=== PATIENT | female | born 1965 | race Caucasian/White ===

== ENCOUNTER 2018-07-07 02:52 | Inpatient (IN) | payer OTHER ==
--- NOTE | 2018-07-07 03:50 | PDOC ---
History of Present Illness - General Chief Complaint: Pain Stated Complaint: ABD PAIN History Source: Patient - History of Present Illness Initial Comments: 07/07/18 06:18 53 year old female c/o RLQ pain worsening over the last 30 hours with nausea and vomiting. denies fever/ chills, urinary symptoms, flank pain. no pmhx no past surgeries. Past History - Past Medical History Allergies/Adverse Reactions: Allergies Allergy/AdvReac Type Severity Reaction Status Date / Time codeine Allergy Vomiting Verified 07/07/18 04:23 Home Medications: Ambulatory Orders Naproxen Sodium [Aleve] 220 mg PO PRN PRN 07/07/18 Ondansetron [Zofran Odt -] 4 mg SL PRN PRN 07/07/18 - Suicide/Smoking/Psychosocial Hx Smoking History: Never smoked Have you smoked in the past 12 months: No Information on smoking cessation initiated: No Hx Alcohol Use: Yes (occasional) Drug/Substance Use Hx: No Review of Systems - Review of Systems Able to Perform ROS?: Yes Is the patient limited Luxembourgish proficient: No Constitutional: No: Symptoms Reported, See HPI, Chills, Diaphoresis, Fever, Loss of Appetite, Malaise, Night Sweats, Weakness, Weight Stable, Unintentional Wgt. Loss, Unexplained wgt Loss, Other ABD/GI: Yes: Nausea, Vomiting, Abdominal cramping. No: Symptoms Reported, See HPI, Abdominal Distended, Abd. Pain w/ defecation, Blood Streaked Bowels, Constipated, Diarrhea, Difficulty Swallowing, Poor Appetite, Poor Fluid Intake, Rectal Bleeding, Indigestion, Tarry Stools, Other : No: Symptoms Reported, See HPI, Burning, Dysuria, Discharge, Frequency, Flank Pain, Hematuria, Incontinence, Pain, Urgency, Testicular Mass, Testicular Swelling, Lesions, Testicular Pain, Other Musculoskeletal: No: Symptoms Reported, See HPI, Back Pain, Gout, Joint Pain, Joint Swelling, Muscle Pain, Muscle Weakness, Neck Pain, Joint Stiffness, Other *Physical Exam - Vital Signs Last Vital Signs Temp Pulse Resp BP Pulse Ox 98.1 F 90 16 113/71 98 07/07/18 02:52 07/07/18 02:52 07/07/18 02:52 07/07/18 02:52 07/07/18 02:52 - Physical Exam General Appearance: Yes: Moderate Distress Cardiovascular: positive: Regular Rhythm, Regular Rate Gastrointestinal/Abdominal: positive: Normal Bowel Sounds, Tender (lower quadrant tenderness), Soft Musculoskeletal: positive: Normal Inspection Extremity: positive: Normal Capillary Refill, Normal Inspection, Normal Range of Motion Integumentary: positive: Normal Color, Dry, Warm Neurologic: positive: Fully Oriented, Alert Moderate Sedation - Procedure Monitoring Vital Signs: Procedure Monitoring Vital Signs Temperature 98.1 F 07/07/18 02:52 Pulse Rate 90 07/07/18 02:52 Respiratory Rate 16 07/07/18 02:52 Blood Pressure 113/71 07/07/18 02:52 O2 Sat by Pulse Oximetry (%) 98 07/07/18 02:52 ED Treatment Course - LABORATORY CBC & Chemistry Diagram: 07/07/18 04:10 07/07/18 04:10 Progress Note - Progress Note Progress Note: A: abdominal pain P: labs UA CTAP IVF *DC/Admit/Observation/Transfer Diagnosis at time of Disposition: Abdominal pain Qualifiers: Abdominal location: lower abdomen, unspecified Qualified Code(s): R10.30 - Lower abdominal pain, unspecified - Discharge Dispostion Condition at time of disposition: Fair - Referrals - Patient Instructions - Post Discharge Activity
[2018-07-07] MEDS ORDERED: SODIUM CHLORIDE 0.9% 500 ML INFUS.BAG IV ONE (03:51)
[2018-07-07] MEDS ORDERED: ACETAMINOPHEN 1000 MG/100 ML VIAL (NON FORMULARY) IVPB ONE (04:04)
[2018-07-07] MEDS ORDERED: ACETAMINOPHEN INJECTION 100 ML IVPB ONE ×2 (04:13→14:47)
[2018-07-07 04:21] LABS: BASO % 0.2 % (0-2.0); EOS % 0.1 % (0-4.5); HEMATOCRIT 40.2 % (32.4-45.2); HEMOGLOBIN 14.8 GM/dL (10.7-15.3); LYMPH % 8.7 % (8-40); MCH 33.2 pg (25.7-33.7); MCHC 36.9 g/dl (32.0-36.0); MEAN PLT VOLUME 7.2 fl (7.5-11.1); MONO % 3.4 % (3.8-10.2); NEUT % 87.6 % (42.8-82.8); PLATELET COUNT 208 K/MM3 (134-434); RBC 4.47 M/mm3 (3.60-5.2); RDW 12.8 % (11.6-15.6)
[2018-07-07 04:45] LABS: ALK PHOS 61 U/L (45-117); ANION GAP 8 MMOL/L (8-16); BILIRUBIN,TOTAL 2.4 mg/dL (0.2-1); BLOOD UREA NITROGEN 17 mg/dL (7-18); CALCIUM 8.8 mg/dL (8.5-10.1); CHLORIDE 104 mmol/L (98-107); CO2 27 mmol/L (21-32); CREATININE 1.1 mg/dL (0.55-1.3); GLUCOSE,RANDOM 131 mg/dL (74-106); LIPASE 282 U/L (73-393); POTASSIUM 4.2 mmol/L (3.5-5.1); SGOT/AST 22 U/L (15-37); SGPT/ALT 24 U/L (13-61); SODIUM 138 mmol/L (136-145); TOT PROT 7.2 g/dl (6.4-8.2)
--- NOTE | 2018-07-07 04:52 | PDOC ---
*Physical Exam - Vital Signs Last Vital Signs Temp Pulse Resp BP Pulse Ox 98.1 F 90 16 113/71 98 07/07/18 02:52 07/07/18 02:52 07/07/18 02:52 07/07/18 02:52 07/07/18 02:52 ED Treatment Course - LABORATORY CBC & Chemistry Diagram: 07/07/18 04:10 07/07/18 04:10 - ADDITIONAL ORDERS Additional order review: Laboratory Results 07/07/18 04:10 Sodium 138 Potassium 4.2 Chloride 104 Carbon Dioxide 27 Anion Gap 8 BUN 17 Creatinine 1.1 Creat Clearance w eGFR 52.16 Random Glucose 131 H Calcium 8.8 Total Bilirubin 2.4 H AST 22 ALT 24 Alkaline Phosphatase 61 Total Protein 7.2 Albumin 4.0 Lipase 282 - Medications Given in the ED: ED Medications Discontinued Medications Generic Name Dose Route Start Last Admin Trade Name Freq PRN Reason Stop Dose Admin Acetaminophen 1,000 mg 07/07/18 04:04 07/07/18 04:20 Ofirmev Injection - IVPB 07/07/18 04:05 1,000 mg ONCE ONE Administration Sodium Chloride 1,000 ml 07/07/18 03:51 07/07/18 04:05 Normal Saline - IV 07/07/18 03:52 1,000 ml ONCE ONE Administration Medical Decision Making - Medical Decision Making 07/07/18 04:51 Patient seen by the advanced practice provider under my direct supervision. Ancillary testing reviewed as necessary. I agree with plan as outlined by the advanced practice provider. *DC/Admit/Observation/Transfer Diagnosis at time of Disposition: Abdominal pain Qualifiers: Abdominal location: right lower quadrant Qualified Code(s): R10.31 - Right lower quadrant pain Acute appendicitis Qualifiers: Acute appendicitis type: with localized peritonitis Appendicitis gangrene presence: without gangrene Appendicitis perforation presence: without perforation Appendicitis abscess presence: without abscess Qualified Code(s): K35.30 - Acute appendicitis with localized peritonitis, without perforation or gangrene - Discharge Dispostion Condition at time of disposition: Fair - Referrals - Patient Instructions - Post Discharge Activity
[2018-07-07] MEDS ORDERED: morphine CARPU-JECT 4 MG/1 ML DISP.SYRIN IVPUSH ONE (04:58)
[2018-07-07] MEDS ORDERED: morphine SULFATE 4 MG/ML VIAL ONE (05:17)
[2018-07-07] MEDS ORDERED: ONDANSETRON 4 MG/2 ML VIAL ONE ×3 (05:17→13:59)
[2018-07-07] MEDS: ONDANSETRON 4 MG/2 ML VIAL IVPUSH ONE ×2 (05:25→14:05)
[2018-07-07 05:55] LABS: PLATELET ESTIMATE ADEQUATE
[2018-07-07] MEDS ORDERED: SODIUM CHLORIDE 1,000 ML IV SCH (06:30)
[2018-07-07 06:50] LABS: EPI CELLS RARE /HPF (FEW); URINE APPEARANCE SLCLOUDY; URINE BACTERIA RARE /hpf (NONE SEEN); URINE BILIRUBIN NEGATIVE (<2.0 mg/dL); URINE COLOR DKYELLOW; URINE GLUCOSE (UA) NEGATIVE (NEGATIVE); URINE KETONE NEGATIVE (NEGATIVE); URINE LEUK ESTERASE NEGATIVE (NEGATIVE); URINE MUCUS MANY; URINE NITRITE NEGATIVE (NEGATIVE); URINE PROTEIN 1+ (NEGATIVE); URINE UROBILINOGEN NEGATIVE mg/dL (0.2-1.0)
--- NOTE | 2018-07-07 07:12 | PDOC ---
*Physical Exam - Vital Signs Last Vital Signs Temp Pulse Resp BP Pulse Ox 98.1 F 90 16 113/71 98 07/07/18 02:52 07/07/18 02:52 07/07/18 02:52 07/07/18 02:52 07/07/18 02:52 - Physical Exam General Appearance: Yes: Nourished, Appropriately Dressed. No: Apparent Distress Gastrointestinal/Abdominal: positive: Normal Bowel Sounds, Tender (RLQ), Flat, Soft, Guarding (RLQ), Rebound (RLQ). negative: Distended Neurologic: positive: Fully Oriented, Alert, Normal Mood/Affect, Normal Response ED Treatment Course - LABORATORY CBC & Chemistry Diagram: 07/07/18 04:10 07/07/18 04:10 - ADDITIONAL ORDERS Additional order review: Laboratory Results 07/07/18 07/07/18 07/07/18 06:20 06:20 04:10 Sodium 138 Potassium 4.2 Chloride 104 Carbon Dioxide 27 Anion Gap 8 BUN 17 Creatinine 1.1 Creat Clearance w eGFR 52.16 Random Glucose 131 H Calcium 8.8 Total Bilirubin 2.4 H AST 22 ALT 24 Alkaline Phosphatase 61 Total Protein 7.2 Albumin 4.0 Lipase 282 Urine Color Dkyellow Urine Appearance Slcloudy Urine pH 5.0 Ur Specific [place] 1.024 Urine Protein 1+ H Urine Glucose (UA) Negative Urine Ketones Negative Urine Blood Negative Urine Nitrite Negative Urine Bilirubin Negative Urine Urobilinogen Negative Ur Leukocyte Esterase Negative Urine WBC (Auto) 7 Urine RBC (Auto) <1 Ur Epithelial Cells Rare Urine Bacteria Rare Urine Mucus Many Urine HCG, Qual Negative 07/07/18 04:10 RBC 4.47 MCV 90.0 MCHC 36.9 H RDW 12.8 MPV 7.2 L Neutrophils % 87.6 H Lymphocytes % 8.7 Monocytes % 3.4 L Eosinophils % 0.1 Basophils % 0.2 - Medications Given in the ED: ED Medications Discontinued Medications Generic Name Dose Route Start Last Admin Trade Name Freq PRN Reason Stop Dose Admin Acetaminophen 1,000 mg 07/07/18 04:04 07/07/18 04:20 Ofirmev Injection - IVPB 07/07/18 04:05 1,000 mg ONCE ONE Administration Morphine Sulfate 4 mg 07/07/18 04:58 07/07/18 05:27 Morphine Injection - IVPUSH 07/07/18 04:59 4 mg ONCE ONE Administration Ondansetron HCl 4 mg 07/07/18 04:58 07/07/18 05:25 Zofran Injection IVPUSH 07/07/18 04:59 4 mg ONCE ONE Administration Sodium Chloride 1,000 ml 07/07/18 03:51 07/07/18 04:05 Normal Saline - IV 07/07/18 03:52 1,000 ml ONCE ONE Administration Medical Decision Making - Medical Decision Making 07/07/18 07:11 Sign out received from Vianca Chavez NP. Pt pending CT read of abdomen/pelvis. 07/07/18 07:28 Acute appendicitis with possible peritonitis noted on CT. Will start antibiotics and maintenance fluids at this time. Pt still with pain to the RLQ. Will page surgery. 07/07/18 07:[address] Carey. Will take patient for surgery. Admit to Hospitalists 07/07/18 07:41 Microblog sent to hospitalists. 07/07/18 07:[address] Vernon PGY2 for [facility]. Will accept the patient for admission. Attending Dr. Thrasher. *DC/Admit/Observation/Transfer Diagnosis at time of Disposition: Abdominal pain Qualifiers: Abdominal location: right lower quadrant Qualified Code(s): R10.31 - Right lower quadrant pain Acute appendicitis Qualifiers: Acute appendicitis type: with localized peritonitis Appendicitis gangrene presence: without gangrene Appendicitis perforation presence: without perforation Appendicitis abscess presence: without abscess Qualified Code(s): K35.30 - Acute appendicitis with localized peritonitis, without perforation or gangrene - Discharge Dispostion Condition at time of disposition: Fair Decision to Admit order: Yes - Referrals - Patient Instructions - Post Discharge Activity
[2018-07-07] MEDS ORDERED: LACTATED RINGERS SOLUTION 1,000 ML/1,000 ML INFUS.BAG IV SCH (07:30)
[2018-07-07] MEDS ORDERED: PIPERACILLIN/TAZOB 3.375 GM 3.375 GM in DEXTROSE 5%-WATER - 50 ML IVPB ONE (07:32)
[2018-07-07] MEDS ORDERED: PIPERACILLIN/TAZOB 3.375 GM 3.375 GM/50 ML BAG IVPB ONE (08:16)
--- NOTE | 2018-07-07 08:17 | HP ---
CHIEF COMPLAINT: abd pain [place]CP[place] state HISTORY OF PRESENT ILLNESS: Patient is a 53 yo F with no significant PMHx presented with a sharp, constant, 9.5/10, diffuse abdominal pain, radiating to the RLQ that started a day and a half ago, which is worsened with movement. She said the pain then later localized to the RLQ. Patient also says shes nauseas with 1 episode of vomiting last night in the ER. She denies fevers, although she says she gets warm all the time due to menopause. Patient says she had a similar episode 2 years ago but was cleared by her doctor. She denies sob, chest pain, fevers, chills, bloody stools, vaginal discharge, diarrhea, urinary problems, headaches, cough. ER course was notable for: (1) CTAP nighthawk read: acute appendicitis with possible peritonitis (2) 4mg Morphine, 1L NS Bolus Recent Travel: flew in from out of [facility] yesterday PAST MEDICAL HISTORY: no pmhx PAST SURGICAL HISTORY: metatarsal surgery years ago Social History: Smoking: denies Alcohol: socially Drugs: denies Family History: Allergies codeine Allergy (Verified 07/07/18 04:23) Vomiting Hallucinations, N/V HOME MEDICATIONS: Home Medications Medication Instructions Recorded Naproxen Sodium [Aleve] 220 mg PO PRN PRN 07/07/18 Ondansetron [Zofran Odt -] 4 mg SL PRN PRN 07/07/18 REVIEW OF SYSTEMS CONSTITUTIONAL: loss of appetite Absent: fever, chills, diaphoresis, generalized weakness, malaise, weight change HEENT: Absent: rhinorrhea, nasal congestion, throat pain, throat swelling, difficulty swallowing, mouth swelling, ear pain, eye pain, visual changes CARDIOVASCULAR: Absent: chest pain, syncope, palpitations, irregular heart rate, lightheadedness , peripheral edema RESPIRATORY: Absent: cough, shortness of breath, dyspnea with exertion, orthopnea, wheezing, stridor, hemoptysis GASTROINTESTINAL: abdominal pain, nausea, vomiting Absent: abdominal distension, diarrhea, constipation, melena, hematochezia GENITOURINARY: Absent: dysuria, frequency, urgency, hesitancy, hematuria, flank pain, genital pain MUSCULOSKELETAL: Absent: myalgia, arthralgia, joint swelling, back pain, neck pain SKIN: Absent: rash, itching, pallor HEMATOLOGIC/IMMUNOLOGIC: Absent: easy bleeding, easy bruising, lymphadenopathy, frequent infections ENDOCRINE: Absent: unexplained weight gain, unexplained weight loss, heat intolerance, cold intolerance NEUROLOGIC: Absent: headache, focal weakness or paresthesias, dizziness, unsteady gait, seizure, mental status changes, bladder or bowel incontinence PSYCHIATRIC: Absent: anxiety, depression, suicidal or homicidal ideation, hallucinations. PHYSICAL EXAMINATION Vital Signs - 24 hr 07/07/18 02:52 Temperature 98.1 F Pulse Rate 90 Respiratory 16 Rate Blood Pressure 113/71 O2 Sat by Pulse 98 Oximetry (%) GENERAL: a/o x 3, laying in bed, in mild distress HEAD: Normal with no signs of trauma. EYES: Pupils equal, round and reactive to light, extraocular movements intact, sclera anicteric, conjunctiva clear. EARS, NOSE, THROAT: oropharynx clear without exudates. Dry mucous membranes NECK:supple without lymphadenopathy, JVD, or masses. LUNGS: Breath sounds equal, clear to auscultation bilaterally. No wheezes, and no crackles. HEART: Regular rate and rhythm, normal S1 and S2 without murmur, rub or gallop. ABDOMEN: Soft, diffuse tenderness in all quadrants. +guarding, + rovsing, + [place] LOWER EXTREMITIES: 2+ pulses, warm, well-perfused. No peripheral edema. NEUROLOGICAL: Cranial nerves II-XII intact. Normal speech. Normal gait. PSYCHIATRIC: Cooperative. Good eye contact. Appropriate mood and affect. Laboratory Results - last 24 hr 07/07/18 07/07/18 07/07/18 04:10 04:10 06:20 WBC 5.0 RBC 4.47 Hgb 14.8 Hct 40.2 MCV 90.0 MCH 33.2 MCHC 36.9 H RDW 12.8 Plt Count 208 MPV 7.2 L Absolute Neuts (auto) 4.4 Total Counted 100 Neutrophils % 87.6 H Neutrophils % (Manual) 78.0 Band Neutrophils % 8.0 Lymphocytes % 8.7 Lymphocytes % (Manual) 11.0 Monocytes % 3.4 L Monocytes % (Manual) 2 L Eosinophils % 0.1 Basophils % 0.2 Basophils % (Manual) 1.0 Nucleated RBC % 0 Platelet Estimate Adequate Platelet Comment No clotting detected Sodium 138 Potassium 4.2 Chloride 104 Carbon Dioxide 27 Anion Gap 8 BUN 17 Creatinine 1.1 Creat Clearance w eGFR 52.16 Random Glucose 131 H Calcium 8.8 Total Bilirubin 2.4 H AST 22 ALT 24 Alkaline Phosphatase 61 Total Protein 7.2 Albumin 4.0 Lipase 282 Urine Color Dkyellow Urine Appearance Slcloudy Urine pH 5.0 Ur Specific [place] 1.024 Urine Protein 1+ H Urine Glucose (UA) Negative Urine Ketones Negative Urine Blood Negative Urine Nitrite Negative Urine Bilirubin Negative Urine Urobilinogen Negative Ur Leukocyte Esterase Negative Urine WBC (Auto) 7 Urine RBC (Auto) <1 Ur Epithelial Cells Rare Urine Bacteria Rare Urine Mucus Many Urine HCG, Qual 07/07/18 06:20 WBC RBC Hgb Hct MCV MCH MCHC RDW Plt Count MPV Absolute Neuts (auto) Total Counted Neutrophils % Neutrophils % (Manual) Band Neutrophils % Lymphocytes % Lymphocytes % (Manual) Monocytes % Monocytes % (Manual) Eosinophils % Basophils % Basophils % (Manual) Nucleated RBC % Platelet Estimate Platelet Comment Sodium Potassium Chloride Carbon Dioxide Anion Gap BUN Creatinine Creat Clearance w eGFR Random Glucose Calcium Total Bilirubin AST ALT Alkaline Phosphatase Total Protein Albumin Lipase Urine Color Urine Appearance Urine pH Ur Specific [place] Urine Protein Urine Glucose (UA) Urine Ketones Urine Blood Urine Nitrite Urine Bilirubin Urine Urobilinogen Ur Leukocyte Esterase Urine WBC (Auto) Urine RBC (Auto) Ur Epithelial Cells Urine Bacteria Urine Mucus Urine HCG, Qual Negative ASSESSMENT/PLAN: 53 yo F with no significant PMHx presented with a sharp,diffuse abdominal pain and found to have acute appendicitis. #Acute Appendicitis -CTAP nighthawk read: acute appendicitis with possible peritonitis -LR @ 125ml/hour -Zosyn in ED -Switch to IV Ceftriaxone/Flagyl -Morphine 4mg in ED -cont. Morphine prn for pain control -Surgery consulted: Dr. Carey -peritoneal cultures -Type and screen #FEN -IV fluids LR @ 125 -monitor -NPO for possible sx #DVT -hold for possible surgery Dispo: Med-surge Visit type - Emergency Visit Emergency Visit: Yes ED Registration Date: 07/07/18 Care time: The patient presented to the Emergency Department on the above date and was hospitalized for further evaluation of their emergent condition. - New Patient This patient is new to me today: Yes Date on this admission: 07/12/18 - Critical Care Critical Care patient: No
[2018-07-07] MEDS ORDERED: MORPHINE SULFATE 2 MG/ML VIAL IVPUSH PRN (08:18)
[2018-07-07] MEDS ORDERED: MORPHINE SULFATE 2 MG/ML VIAL ONE (09:08)
[2018-07-07 09:44] LABS: INR 1.28 (0.83-1.09); PROTHROMBIN TIME (PATIENT) 15.1 SEC (9.7-13.0)
[2018-07-07] MEDS ORDERED: CEFTRIAXONE 2 GM in DEXTROSE 5%-WATER 100 ML IVPB SCH (10:00)
[2018-07-07] MEDS ORDERED: BUPIVACAINE HCL/PF 0.5% (5MG/ML) 10 ML VIAL ONE (10:34)
[2018-07-07] MEDS ORDERED: DEXTROSE 5%-WATER 100 ML IVPB ONE (10:53)
[2018-07-07 11:17] VITALS: BMI 23.0
--- NOTE | 2018-07-07 11:36 | EKG ---
Test Reason : Blood Pressure : / mmHG Vent. Rate : 071 BPM Atrial Rate : 071 BPM P-R Int : 122 ms QRS Dur : 082 ms QT Int : 434 ms P-R-T Axes : 076 070 056 degrees QTc Int : 471 ms NORMAL SINUS RHYTHM ANTERIOR INFARCT , AGE UNDETERMINED ABNORMAL ECG NO PREVIOUS ECGS AVAILABLE Confirmed by LOU SOUTH MD ([id number]) on 07/07/2018 11:36:29 AM Referred By: Confirmed By:LOU SOUTH MD
[2018-07-07] MEDS ORDERED: ROCURONIUM BROMIDE 50 MG/5 ML VIAL ONE (11:39)
[2018-07-07] MEDS ORDERED: MIDAZOLAM HCL 2 MG/2 ML SINGLE DOSE VIAL ONE (11:40)
--- NOTE | 2018-07-07 11:55 | CONSULT ---
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 PMHx: none PSHx: none Home Medications Medication Instructions Recorded Naproxen Sodium [Aleve] 220 mg PO PRN PRN 07/07/18 Ondansetron [Zofran Odt -] 4 mg SL PRN PRN 07/07/18 Allergies Allergy/AdvReac Type Severity Reaction Status Date / Time codeine Allergy Vomiting Verified 07/07/18 04:23 REVIEW OF SYSTEMS: CONSTITUTIONAL: Absent: fever, chills, diaphoresis, generalized weakness, malaise, loss of appetite, weight change CARDIOVASCULAR: Absent: chest pain, syncope, palpitations, irregular heart rate, lightheadedness , peripheral edema RESPIRATORY: Absent: cough, shortness of breath, dyspnea with exertion, wheezing, stridor, hemoptysis GASTROINTESTINAL: Absent: abdominal pain, abdominal distension, nausea, vomiting, diarrhea, constipation, melena, hematochezia GENITOURINARY: Absent: dysuria, frequency, urgency, hesitancy, hematuria, flank pain, genital pain MUSCULOSKELETAL: Absent: myalgia, arthralgia, joint swelling, back pain, neck pain SKIN: Absent: rash, itching, pallor HEMATOLOGIC/IMMUNOLOGIC: Absent: easy bleeding, easy bruising, lymphadenopathy NEUROLOGIC: Absent: headache, focal weakness, paresthesias, dizziness, unsteady gait, seizure, mental status changes, bladder or bowel incontinence PSYCHIATRIC: Absent: anxiety, depression, suicidal or homicidal ideation, hallucinations. PHYSICAL EXAM: GENERAL: Awake, alert, and fully oriented, in no acute distress. HEAD: Normal with no signs of trauma. EYES:, sclera anicteric, conjunctiva clear. NECK: Normal ROM, supple without lymphadenopathy, JVD, or masses. ABDOMEN: Soft, tender over RLQ, not distended, normoactive bowel sounds, voluntary guarding, positive rebound, no masses. No organomegaly. No hernias; Rovsings ; psoas and obturator signs are present. MUSCULOSKELETAL: Normal ROM at all joints. No bony deformities or tenderness. No CVA tenderness. UPPER EXTREMITIES: 2+ pulses, warm, well-perfused. No cyanosis. Cap refill <2 seconds. No peripheral edema. LOWER EXTREMITIES: 2+ pulses, warm, well-perfused. No calf tenderness. No peripheral edema. NEUROLOGICAL: Normal speech, gait not observed. PSYCH: Cooperative. Good eye contact. Appropriate mood and affect. SKIN: Warm, dry, normal turgor, no rashes or lesions noted. Vital Signs Temperature 98 F 07/07/18 10:00 Pulse Rate 88 07/07/18 10:00 Respiratory Rate 16 07/07/18 10:00 Blood Pressure 110/70 07/07/18 10:00 O2 Sat by Pulse Oximetry (%) 99 07/07/18 10:00 Lab Results WBC 5.0 K/mm3 (4.0-10.0) 07/07/18 04:10 RBC 4.47 M/mm3 (3.60-5.2) 07/07/18 04:10 Hgb 14.8 GM/dL (10.7-15.3) 07/07/18 04:10 Hct 40.2 % (32.4-45.2) 07/07/18 04:10 MCV 90.0 fl (80-96) 07/07/18 04:10 MCHC 36.9 g/dl (32.0-36.0) H 07/07/18 04:10 RDW 12.8 % (11.6-15.6) 07/07/18 04:10 Plt Count 208 K/MM3 (134-434) 07/07/18 04:10 Sodium 138 mmol/L (136-145) 07/07/18 04:10 Potassium 4.2 mmol/L (3.5-5.1) 07/07/18 04:10 Chloride 104 mmol/L (98-107) 07/07/18 04:10 Carbon Dioxide 27 mmol/L (21-32) 07/07/18 04:10 Anion Gap 8 MMOL/L (8-16) 07/07/18 04:10 BUN 17 mg/dL (7-18) 07/07/18 04:10 Creatinine 1.1 mg/dL (0.55-1.3) 07/07/18 04:10 Random Glucose 131 mg/dL (74-106) H 07/07/18 04:10 Calcium 8.8 mg/dL (8.5-10.1) 07/07/18 04:10 Blood Type O POSITIVE 07/07/18 09:05 Antibody Screen Negative 07/07/18 09:05 INR 1.28 (0.83-1.09) H 07/07/18 09:05 CT images and report c/w acute appendicitis IMP: acute appendicitis PLAN: Lap appendectomy possible open; r/b/t/a's d/w the patient and informed consent obtained. Nba Carey MD FACS
[2018-07-07] MEDS ORDERED: ePHEDrine SULFATE 50 MG/1 ML AMPULE ONE (12:10)
[2018-07-07] MEDS ORDERED: BUPIVACAINE HCL/PF (5 MG/ML) 30 ML VIAL IJ ONE ×2 (12:54→13:31)
[2018-07-07] MEDS ORDERED: NEOSTIGMINE METHYLSULFATE 0.5 MG/ML - 10 ML MDV ONE (13:15)
--- NOTE | 2018-07-07 14:18 | PN ---
Teaching Attending Note Name of Resident: Hemalatha Vernon ATTENDING PHYSICIAN STATEMENT I saw and evaluated the patient. I reviewed the resident's note and discussed the case with the resident. I agree with the resident's findings and plan as documented. SUBJECTIVE:53yo F with no PMH presented with generalized abdominal pain that started 2 days ago and then localized in RLQ. assoc iwth nausea and 1 episode of vomiting last night. denies Cp, SOB, fever, chills, C/D, sick contacts OBJECTIVE: Last Vital Signs Temp Pulse Resp BP Pulse Ox 98 F 88 16 110/70 99 07/07/18 10:00 07/07/18 10:00 07/07/18 10:00 07/07/18 10:00 07/07/18 10:00 General NAD CV S1 S2 RRR no murmur/rub/gallop Lung CTA B/L no wheezing/rales/rhonchi ABdomen soft +RLQ tenderness Extremities no pedal edema ASSESSMENT AND PLAN: 53yo F with no PMH presented with generalized abdominal pain and found to have acute appendicitis on imaging 1. Acute Appendicitis- medicine admission. Received ZOsyn in the ER, will switch to ceftriaxone/flagyl, IVF, NPO and pain control. surgery consulted and plan to go to surgery today. will f/u events 2. bandemia- due to inflammation as stated above. will monitor 3. DVT ppx- will start hep sq post-operatively
--- NOTE | 2018-07-07 14:28 | OP ---
Operative Note - Note: Operative Date: 07/07/18 Pre-Operative Diagnosis: Appendicitis Operation: Laparoscopic Appendectomy Findings: as dictated Post-Operative Diagnosis: Other (ruptured appendicitis) Surgeon: Nba Carey Tobacco Educator: Claudia Curran Anesthesiologist/TRACK ANNOUNCER: Sathya Gonzalez Anesthesia: General, Local Specimens Removed: appendix Estimated Blood Loss (mls): 10 (ml ) Drains & Tubes with Location: [facility] drain left in appendix wound bed Fluid Volume Replaced (mls): 1 (L LR) Operative Report Dictated: Yes
--- NOTE | 2018-07-07 14:29 | SURG ---
Surgery It Desktop Support Technician Note It Desktop Support Technician: Claudia Curran PA-C (Suzy) Date of Service: 07/07/18 Diagnosis: Appendicitis Procedure: Laparoscopic Appendectomy Whitt catheter placement by ALEJA in the operating room I was present for the entirety of the operative procedure. For further detail, please refer to operative report. Visit type - Case Type Case Type: ED Admission - Emergency Emergency Visit: Yes ED Registration Date: 07/07/18 Care time: The patient presented to the Emergency Department on the above date and was hospitalized for further evaluation of their emergent condition. - New patient This patient is new to me today: Yes Date on this admission: 07/07/18 - Critical Care Critical Care patient: No
[2018-07-07] MEDS: ACETAMINOPHEN 1000 MG/100 ML VIAL (NON FORMULARY) IVPB PRN ×2 (15:00→22:47)
[2018-07-07] MEDS ORDERED: PIPERACILLIN/TAZOB 3.375 GM 3.375 GM in DEXTROSE 5%-WATER - 50 ML IVPB SCH (15:00)
--- NOTE | 2018-07-07 15:26 | CON.ID ---
Consult Consult Specialty:: infectious diseases Referred by:: Reason for Consultation:: ac appendicitis,peritonitis - History of Present Illness Chief Complaint: abd pain History of Present Illness: 53 yo F with no significant PMHx presented with a sharp, constant, 9.5/10, diffuse abdominal pain, radiating to the RLQ that started a day and a half ago, which is worsened with movement. She said the pain then later localized to the RLQ. Patient also says shes nauseas with 1 episode of vomiting . She denies fevers, although she says she gets warm all the time due to menopause. Patient says she had a similar episode 2 years ago but was cleared by her doctor. She denies sob, chest pain, fevers, chills, bloody stools, vaginal discharge, diarrhea, urinary problems, headaches, cough. patient was worked up found to ahve ac appendicitis and was taken to the operating room and underwent appendectomy. the appndix was perforated and peritonitis was present - History Source History Provided By: Patient, Medical Record Limitations to Obtaining History: No Limitations - Past Medical History ...LMP Comment: menopause ...: No - Alcohol/Substance Use Hx Alcohol Use: No (occasional) - Smoking History Smoking history: Never smoked Have you smoked in the past 12 months: No Home Medications - Allergies Allergies/Adverse Reactions: Allergies Allergy/AdvReac Type Severity Reaction Status Date / Time codeine Allergy Vomiting Verified 07/08/18 13:56 oxycodone AdvReac Nausea Verified 07/08/18 13:57 - Home Medications Home Medications: Ambulatory Orders Naproxen Sodium [Aleve] 220 mg PO PRN PRN 07/07/18 Ondansetron [Zofran Odt -] 4 mg SL PRN PRN 07/07/18 Review of Systems - Review of Systems Constitutional: reports: No Symptoms Eyes: reports: No Symptoms HENT: reports: No Symptoms Neck: reports: No Symptoms Cardiovascular: reports: No Symptoms Respiratory: reports: No Symptoms Gastrointestinal: reports: Abdominal Pain, Other Genitourinary: reports: No Symptoms Musculoskeletal: reports: No Symptoms Integumentary: reports: No Symptoms Neurological: reports: No Symptoms Endocrine: reports: No Symptoms Hematology/Lymphatic: reports: No Symptoms Psychiatric: reports: No Symptoms Physical Exam Vital Signs: Vital Signs Temperature 99 F 07/07/18 13:53 Pulse Rate 87 07/07/18 15:20 Respiratory Rate 16 07/07/18 15:20 Blood Pressure 107/49 L 07/07/18 15:20 O2 Sat by Pulse Oximetry (%) 97 07/07/18 15:20 Constitutional: Yes: Calm, Mild Distress Eyes: Yes: Conjunctiva Clear, EOM Intact Cardiovascular: Yes: Regular Rate and Rhythm Respiratory: Yes: Regular, CTA Bilaterally Gastrointestinal: Yes: Normal Bowel Sounds, Soft Musculoskeletal: Yes: WNL Extremities: Yes: WNL Wound/Incision: Yes: Clean/Dry Neurological: Yes: Alert, Oriented Psychiatric: Yes: Alert, Oriented Labs: CBC, BMP 07/07/18 04:10 07/07/18 04:10 Imaging - Results Cat Scan: Report Reviewed, Image Reviewed Assessment/Plan ac appendicitis peritonitis abd pain plan will start patient on zosyn await for cx reports once we have cx report will decide further plan rest as per the team
[2018-07-07] MEDS: LACTATED RINGERS SOLUTION 1,000 ML/1,000 ML INFUS.BAG IV SCH (16:02)
[2018-07-07] MEDS ORDERED: DEXTROSE 5%-WATER - 50 ML IVPB ONE (16:14)
[2018-07-07] MEDS ORDERED: PIPERACILLIN/TAZOBACTAM 3.375 GM VIAL IVPB ONE (16:14)
[2018-07-07] MEDS: PIPERACILLIN/TAZOB 3.375 GM 3.375 GM in DEXTROSE 5%-WATER - 50 ML IVPB SCH (16:23)
[2018-07-07] MEDS: MORPHINE SULFATE 2 MG/ML VIAL IVPUSH PRN (18:59)
[2018-07-08] MEDS ORDERED: PIPERACILLIN/TAZOBACTAM 3.375 GM VIAL IVPB ONE ×3 (02:06→18:16)
[2018-07-08] MEDS ORDERED: DEXTROSE 5%-WATER - 50 ML IVPB ONE ×3 (02:06→18:16)
[2018-07-08] MEDS: MORPHINE SULFATE 2 MG/ML VIAL IVPUSH PRN ×4 (02:24→21:57)
[2018-07-08] MEDS: PIPERACILLIN/TAZOB 3.375 GM 3.375 GM in DEXTROSE 5%-WATER - 50 ML IVPB SCH ×3 (02:24→18:19)
[2018-07-08] MEDS: ACETAMINOPHEN 1000 MG/100 ML VIAL (NON FORMULARY) IVPB PRN (05:58)
[2018-07-08 08:18] LABS: BASO % 0.3 % (0-2.0); EOS % 0.9 % (0-4.5); HEMATOCRIT 31.1 % (32.4-45.2); HEMOGLOBIN 11.1 GM/dL (10.7-15.3); LYMPH % 7.2 % (8-40); MCH 32.3 pg (25.7-33.7); MCHC 35.6 g/dl (32.0-36.0); MEAN CELL VOLUME 90.6 fl (80-96); MEAN PLT VOLUME 7.5 fl (7.5-11.1); MONO % 3.2 % (3.8-10.2); NEUT % 88.4 % (42.8-82.8); PLATELET COUNT 142 K/MM3 (134-434); RBC 3.44 M/mm3 (3.60-5.2); RDW 12.9 % (11.6-15.6)
--- NOTE | 2018-07-08 08:38 | PN ---
Progress Note (short form) - Note Progress Note: POD 1, s/p Laparoscopic Appendectomy Pt seen and examined on AM rounds. Reports persistent abdominal pain with examination, slightly improved from yesterday. Has been oob to the restroom. Remains NPO. Denies cp/sob, n/v/d. Vital Signs Temp 98.4 F 07/08/18 14:49 Pulse 72 07/08/18 14:49 Resp 18 07/08/18 14:49 BP 108/56 L 07/08/18 14:49 Pulse Ox 98 07/07/18 21:00 Intake & Output 07/07/18 07/08/18 07/08/18 23:59 11:59 23:59 Intake Total 3550 1350 Output Total 1940 385 90 Balance 1610 965 -90 Intake: IV 1900 1250 LACTATED RINGERS SOLUTION 500 1250 1,000 ml In 1,000 ml @ 125 mls/hr IV ASDIR CHANDU Rx#:[id number] IVPB 50 100 Other 1600 Output: Drainage 130 85 90 Abdomen 80 85 90 Urine 300 300 Void 200 300 Estimated Blood Loss 10 Other 1500 Other: Voiding Method Toilet Bowel Movement No CBC, BMP 07/08/18 06:30 07/08/18 06:30 Gen: awake, alert, nad Resp: Unlabored on RA, cta b/l anteriorly CV: rrr, s1s2 Abdo: distended, difuse ttp, +rebound, hypoactive bowel sounds, no guarding. Dressings c/d/i, minimal serosanguinous drainage around PARISH drain. Parish drain with 10ml in reservoir (serosanginous), tubing stripped. A/P: 53 y/o F w/ no significant PMHx, admitted 2/ with abdominal pain, found to have acute appendicitis by CT scan, now POD 1, s/p lap appy (+ ruptured appendix/peritonitis). Stable this AM Afebrile, VSS. PARISH drain output 165ml overnight -IV abx per ID (Dr Grover) -PARISH drain to suction, measure and record output -F/U OR cultures -VS per protocol -Advance to clears -Pain control with Acetaminophen 650mg q6hrs prn, Morphine 2mg q3hrs prn BTP -Incentive spirometry -DVT prophylaxis with Heparin sq 5000u tid, b/l scds -OOB ad [place] above d/w attending Dr Carey
[2018-07-08 08:45] LABS: ALBUMIN 2.5 g/dl (3.4-5.0); ALK PHOS 46 U/L (45-117); ANION GAP 7 MMOL/L (8-16); BILIRUBIN,TOTAL 1.5 mg/dL (0.2-1); BLOOD UREA NITROGEN 15 mg/dL (7-18); CALCIUM 7.9 mg/dL (8.5-10.1); CHLORIDE 106 mmol/L (98-107); CO2 27 mmol/L (21-32); CREATININE 0.7 mg/dL (0.55-1.3); GLUCOSE,RANDOM 80 mg/dL (74-106); MAGNESIUM 2.1 mg/dL (1.8-2.4); PHOSPHOROUS 2.5 mg/dL (2.5-4.9); POTASSIUM 3.6 mmol/L (3.5-5.1); SGOT/AST 10 U/L (15-37); SGPT/ALT 16 U/L (13-61); SODIUM 139 mmol/L (136-145)
[2018-07-08] MEDS: LACTATED RINGERS SOLUTION 1,000 ML/1,000 ML INFUS.BAG IV SCH ×3 (09:58→18:19)
[2018-07-08] MEDS ORDERED: MORPHINE SULFATE 2 MG/ML VIAL IVPUSH PRN (11:23)
--- NOTE | 2018-07-08 11:26 | PN ---
Physical Exam: SUBJECTIVE: Patient seen and examined at bedside this morning. She is POD#1 s/p laparascopic appendectomy. Patient endorses abdominal pain worst in bilateral lower quadrants. She is tolerating ice chips without nausea, vomiting. No bowel movements or flatus passed overnight. PARISH drain with 83cc sanguinous fluid. OBJECTIVE: Vital Signs Period Temp Pulse Resp BP Sys/Espinal Pulse Ox Last 24 Hr 98 F-99.1 F 68-93 14-20 99-115/49-62 95-100 GENERAL: The patient is awake, alert, and fully oriented, in no acute distress. HEAD: Normocephalic, atraumatic. EYES: PERRL, extraocular movements intact, sclera anicteric, conjunctiva clear. ENT: Oropharynx clear without exudates, moist mucous membranes. NECK: Supple without lymphadenopathy, or JVD LUNGS: Breath sounds equal, clear to auscultation bilaterally. No wheezes, no crackles. No accessory muscle use. HEART: Regular rate and rhythm, S1, S2 without murmur, rub or gallop. ABDOMEN: Soft, nondistended, diffusely tender to light palpation, worst at right and left lower quadrants. Hypoactive bowel sounds X4 quadrants. No hepatosplenomegaly. PARISH drain site clean, dry. Draining sanguinous fluid. EXTREMITIES: 2+ radial and dorsalis pedis pulses bilaterally, warm, well- perfused. No lower extremity edema bilaterally. NEUROLOGICAL: Cranial nerves II through XII grossly intact. Normal speech. Strength 5/5 bilateral upper and lower extremities, limited only by postsurgical pain. PSYCH: Normal mood, normal affect upon my encounter. SKIN: Warm, dry. Laboratory Results - last 24 hr 07/07/18 07/08/18 07/08/18 17:15 06:30 06:30 WBC 6.0 RBC 3.44 L Hgb 11.1 Hct 31.1 L D MCV 90.6 MCH 32.3 MCHC 35.6 RDW 12.9 Plt Count 142 D MPV 7.5 Absolute Neuts (auto) 5.3 Neutrophils % 88.4 H Lymphocytes % 7.2 L Monocytes % 3.2 L Eosinophils % 0.9 D Basophils % 0.3 Nucleated RBC % 0 Sodium 139 Potassium 3.6 Chloride 106 Carbon Dioxide 27 Anion Gap 7 L BUN 15 Creatinine 0.7 Creat Clearance w eGFR > 60 Random Glucose 80 Calcium 7.9 L Phosphorus 2.5 Magnesium 2.1 Total Bilirubin 1.5 H AST 10 L ALT 16 Alkaline Phosphatase 46 Total Protein 5.0 L Albumin 2.5 L Blood Type O POSITIVE Active Medications Generic Name Dose Route Start Last Admin Trade Name Freq PRN Reason Stop Dose Admin Acetaminophen 1,000 mg 07/07/18 14:14 07/08/18 05:58 Ofirmev Injection - IVPB 1,000 mg Q6H PRN Administration FEVER Lactated Ringer's 1,000 ml in 1,000 mls @ 125 mls/hr 07/07/18 14:37 07/08/18 00:00 Lactated Ringers Solution IV 125 mls/hr ASDIR CHANDU Administration Piperacillin Sod/Tazobactam 50 mls @ 100 mls/hr 07/07/18 15:15 07/08/18 09:17 Sod 3.375 gm/ Dextrose IVPB 100 mls/hr Q8H-IV CHANDU Administration Protocol Morphine Sulfate 2 mg 07/07/18 14:37 07/08/18 09:18 Morphine Sulfate IVPUSH 2 mg Q4H PRN Administration PAIN LEVEL 6-10 ASSESSMENT/PLAN: Patient is a 53 year old female with no significant medical history admitted for acute appendicitis. Acute appendicitis with perforated appendix -Patient is POD#1 s/p laparoscopic appendectomy. -Follow PARISH drain output. Currently draining sanguineous drainage. -General surgery consult (Dr. Carey) appreciated -ID consult (Dr. Grover) appreciated -Follow peritoneal fluid cultures -Zosyn 3.375grams IV Q8H -Ofirmev 1000mg IV Q6H -Morphine 2mg IV Q3H PRN -Advance to clear liquid diet. Continue to advance as tolerated. -Incentive spirometer FEN -IV Lactated Ringer's at 125mL/ hour. Discontinue once patient tolerating clear liquids -Follow CMP -Clear liquid diet. Advance as tolerated. Prophylaxis -SCDs. Will reinstate Heparin 5000u subq TID Disposition -Continue care in medical surgical floor. Visit type - Emergency Visit Emergency Visit: Yes ED Registration Date: 07/07/18 Care time: The patient presented to the Emergency Department on the above date and was hospitalized for further evaluation of their emergent condition. - New Patient This patient is new to me today: Yes Date on this admission: 07/08/18 - Critical Care Critical Care patient: No - Discharge Referral [facility]erred to [facility] Med P.C.: No
--- NOTE | 2018-07-08 11:44 | PN ---
Teaching Attending Note Name of Resident: Reed Pelaez ATTENDING PHYSICIAN STATEMENT I saw and evaluated the patient. I reviewed the resident's note and discussed the case with the resident. I agree with the resident's findings and plan as documented. SUBJECTIVE:c/o pain but states it improved with pain medication but feels the meds run out too soon. denies CP, SOB, fever, chills, N/V/C/D, no flatus OBJECTIVE: Last Vital Signs Temp Pulse Resp BP Pulse Ox 99.0 F 78 20 109/55 L 98 07/08/18 06:00 07/08/18 06:00 07/08/18 06:00 07/08/18 06:00 07/07/18 21:00 General NAD Lung CTA B/L no wheezing/rales/rhonchi ABdomen soft diffusely tender. bandages superior to umbilicus c/d/i. PARISH drain in LLQ drainage serosangenuous fluid iwth bandage c/d/i. no BS appreciated ASSESSMENT AND PLAN: 53yo F with no PMH presented with generalized abdominal pain and found to have acute appendicitis on imaging 1. Acute Appendicitis-s/p laprascopic appendectomy 07/07. with perforated appendix. advance diet to clear liquids. on zosyn day 2. will need 48-72 IV abx. will increase morphine to Q3H to optimize pain control. f/u Cx results. ID and surgery on board. encourage OOB to chair. can d/c IVF once tolerating diet 2. bandemia- due to inflammation as stated above.resolved 3. DVT ppx- hep sq
[2018-07-08] MEDS ORDERED: oxyCODONE HCL 5 MG TABLET PO PRN ×2 (13:38→13:47)
[2018-07-08] MEDS: HEPARIN NA (PORCINE) 5,000 UNITS/ML 1ML VIAL SQ SCH ×2 (13:52→21:57)
--- NOTE | 2018-07-08 14:13 | PN ---
Progress Note, Physician History of Present Illness: still with pain feels better than yesterday - Current Medication List Current Medications: Active Medications Acetaminophen (Ofirmev Injection -) 1,000 mg IVPB Q6H PRN PRN Reason: FEVER Last Admin: 07/08/18 05:58 Dose: 1,000 mg Heparin Sodium (Porcine) (Heparin -) 5,000 unit SQ TID CHANDU Last Admin: 07/08/18 13:52 Dose: 5,000 unit Lactated Ringer's (Lactated Ringers Solution) 1,000 ml in 1,000 mls @ 125 mls/ hr IV ASDIR CHANDU Last Admin: 07/08/18 00:00 Dose: 125 mls/hr Piperacillin Sod/Tazobactam (Sod 3.375 gm/ Dextrose) 50 mls @ 100 mls/hr IVPB Q8H-IV CHANDU; Protocol Last Admin: 07/08/18 09:17 Dose: 100 mls/hr Morphine Sulfate (Morphine Sulfate) 2 mg IVPUSH Q3H PRN PRN Reason: PAIN LEVEL 7 - 10 Last Admin: 07/08/18 13:51 Dose: 2 mg Oxycodone HCl (Roxicodone -) 5 mg PO Q6H PRN PRN Reason: PAIN LEVEL 4 - 6 - Objective Vital Signs: Vital Signs Temperature 99.0 F 07/08/18 06:00 Pulse Rate 78 07/08/18 06:00 Respiratory Rate 20 07/08/18 06:00 Blood Pressure 109/55 L 07/08/18 06:00 O2 Sat by Pulse Oximetry (%) 98 07/07/18 21:00 Constitutional: Yes: Calm, Mild Distress Cardiovascular: Yes: Regular Rate and Rhythm Respiratory: Yes: Regular, CTA Bilaterally Gastrointestinal: Yes: Normal Bowel Sounds, Soft Musculoskeletal: Yes: WNL Extremities: Yes: WNL Wound/Incision: Yes: Clean/Dry Neurological: Yes: Alert, Oriented Psychiatric: Yes: Alert, Oriented Labs: CBC, BMP 07/08/18 06:30 07/08/18 06:30 INR, PTT INR 1.28 (0.83-1.09) H 07/07/18 09:05 Assessment/Plan ac appendicitis peritonitis abd pain plan await for identification of the org continue abx rest as per the team and surgery
[2018-07-08] MEDS ORDERED: ACETAMINOPHEN 1000 MG/100 ML VIAL (NON FORMULARY) IVPB ONE (14:34)
[2018-07-08 15:48] LABS: HEMATOCRIT 33.2 % (32.4-45.2); HEMOGLOBIN 11.8 GM/dL (10.7-15.3); MCH 32.5 pg (25.7-33.7); MCHC 35.5 g/dl (32.0-36.0); MEAN CELL VOLUME 91.7 fl (80-96); MEAN PLT VOLUME 7.8 fl (7.5-11.1); PLATELET COUNT 150 K/MM3 (134-434); RBC 3.62 M/mm3 (3.60-5.2); RDW 12.6 % (11.6-15.6); WHITE BLOOD COUNT 6.5 K/mm3 (4.0-10.0)
[2018-07-08] MEDS ORDERED: ACETAMINOPHEN 325 MG TABLET (FP) PO PRN (18:00)
[2018-07-09] MEDS ORDERED: PIPERACILLIN/TAZOBACTAM 3.375 GM VIAL IVPB ONE ×2 (02:00→10:45)
[2018-07-09] MEDS ORDERED: DEXTROSE 5%-WATER - 50 ML IVPB ONE ×2 (02:01→10:45)
[2018-07-09] MEDS: PIPERACILLIN/TAZOB 3.375 GM 3.375 GM in DEXTROSE 5%-WATER - 50 ML IVPB SCH ×2 (02:30→11:10)
[2018-07-09] MEDS: MORPHINE SULFATE 2 MG/ML VIAL IVPUSH PRN (02:38)
[2018-07-09] MEDS: LACTATED RINGERS SOLUTION 1,000 ML/1,000 ML INFUS.BAG IV SCH (02:57)
[2018-07-09] MEDS: HEPARIN NA (PORCINE) 5,000 UNITS/ML 1ML VIAL SQ SCH ×3 (06:44→22:00)
--- NOTE | 2018-07-09 07:14 | PN ---
Physical Exam: SUBJECTIVE: Patient seen and examined at bedside this morning. She is POD#2 s/p laparoscopic appendectomy. She endorses that her pain was well controlled overnight. Patient is tolerating clear liquids without abdominal pain, nausea, or vomiting. She is passing flatus, however has not yet had bowel movement. She denies subjective fevers, chills. OBJECTIVE: Vital Signs Period Temp Pulse Resp BP Sys/Espinal Pulse Ox Last 24 Hr 98.4 F-98.6 F 72-82 18-20 108-121/56-66 97 GENERAL: The patient is awake, alert, and fully oriented, in no acute distress. HEAD: Normocephalic, atraumatic. EYES: PERRL, extraocular movements intact, sclera anicteric, conjunctiva clear. ENT: Oropharynx clear without exudates, moist mucous membranes. NECK: Supple without lymphadenopathy, or JVD LUNGS: Breath sounds equal, clear to auscultation bilaterally. No wheezes, no crackles. No accessory muscle use. HEART: Regular rate and rhythm, S1, S2 without murmur, rub or gallop. ABDOMEN: Soft, nondistended, diffusely tender to light palpation, worst at right and left lower quadrants. Hypoactive bowel sounds X4 quadrants. No hepatosplenomegaly. PARISH drain site clean, dry. Draining sanguinous fluid. EXTREMITIES: 2+ radial and dorsalis pedis pulses bilaterally, warm, well- perfused. No lower extremity edema bilaterally. NEUROLOGICAL: Cranial nerves II through XII grossly intact. Normal speech. Strength 5/5 bilateral upper and lower extremities, limited only by postsurgical pain. PSYCH: Normal mood, normal affect upon my encounter. SKIN: Warm, dry. Laboratory Results - last 24 hr 07/08/18 07/08/18 07/08/18 06:30 06:30 15:00 WBC 6.0 6.5 RBC 3.44 L 3.62 Hgb 11.1 11.8 Hct 31.1 L D 33.2 MCV 90.6 91.7 MCH 32.3 32.5 MCHC 35.6 35.5 RDW 12.9 12.6 Plt Count 142 D 150 MPV 7.5 7.8 Absolute Neuts (auto) 5.3 Neutrophils % 88.4 H Lymphocytes % 7.2 L Monocytes % 3.2 L Eosinophils % 0.9 D Basophils % 0.3 Nucleated RBC % 0 Sodium 139 Potassium 3.6 Chloride 106 Carbon Dioxide 27 Anion Gap 7 L BUN 15 Creatinine 0.7 Creat Clearance w eGFR > 60 Random Glucose 80 Calcium 7.9 L Phosphorus 2.5 Magnesium 2.1 Total Bilirubin 1.5 H AST 10 L ALT 16 Alkaline Phosphatase 46 Total Protein 5.0 L Albumin 2.5 L Active Medications Generic Name Dose Route Start Last Admin Trade Name Freq PRN Reason Stop Dose Admin Acetaminophen 650 mg 07/08/18 18:00 Tylenol - PO Q6H PRN PAIN LEVEL 4 - 6 Heparin Sodium (Porcine) 5,000 unit 07/08/18 14:00 07/09/18 06:44 Heparin - SQ 5,000 unit TID CHANDU Administration Lactated Ringer's 1,000 ml in 1,000 mls @ 125 mls/hr 07/07/18 14:37 07/09/18 02:57 Lactated Ringers Solution IV 125 mls/hr ASDIR CHANDU Administration Piperacillin Sod/Tazobactam 50 mls @ 100 mls/hr 07/07/18 15:15 07/09/18 02:30 Sod 3.375 gm/ Dextrose IVPB 100 mls/hr Q8H-IV CHANDU Administration Protocol Morphine Sulfate 2 mg 07/08/18 13:39 07/09/18 02:38 Morphine Sulfate IVPUSH 2 mg Q3H PRN Administration PAIN LEVEL 7 - 10 ASSESSMENT/PLAN: Patient is a 53 year old female with no significant medical history admitted for acute appendicitis. Acute appendicitis with perforated appendix -Patient is POD#2 s/p laparoscopic appendectomy. -Follow PARISH drain output. Currently draining sanguineous drainage. -General surgery consult (Dr. Carey) appreciated -ID consult (Dr. Grover) appreciated -Peritoneal fluid cultures growing ESBL E. coli. -Patient completed 3 days of Zosyn -Ertapenem 1 gram IV daily to complete 7 days total course. -Tylenol 650mg PO Q6H PRN -Ketorolac 30mg IV Q8H PRN -Morphine 2mg IV Q3H PRN -Incentive spirometer FEN -No IV fluids indicated. Encourage judicious oral hydration. -Follow CMP -Regular diet Prophylaxis -SCDs. Will reinstate Heparin 5000u subq TID Disposition -Continue care in medical surgical floor. Visit type - Emergency Visit Emergency Visit: Yes ED Registration Date: 07/07/18 Care time: The patient presented to the Emergency Department on the above date and was hospitalized for further evaluation of their emergent condition. - New Patient This patient is new to me today: No - Critical Care Critical Care patient: No - Discharge Referral Referred to [facility] Med P.C.: No
--- NOTE | 2018-07-09 08:38 | PN ---
Progress Note (short form) - Note Progress Note: POD#2 Pt tolerated clears and passed flatus several times. No BM. OOB and ambulating, Voiding without difficulty. Vital Signs Period Temp Pulse Resp BP Sys/Espinal Pulse Ox Last 24 Hr 98.4 F-98.6 F 72-82 18-20 108-121/56-66 97 PARISH: 175 ml serosangrenous GEN: A&0x3, NAD CV: RRR Lungs: CTA b/l ABD: soft, non-distended, inc tenderness. Inc c/d/i CBC, BMP // 15:00 02// 06:30 A/P: 53 yo female s/p lap appendectomy, ruptured appendix Plan for full liquids this am and adv to soft if tolerated OOB ambulate Tylenol/toradol for pain D/w Dr. Carey
--- NOTE | 2018-07-09 10:39 | PN ---
Teaching Attending Note Name of Resident: Reed Pelaez ATTENDING PHYSICIAN STATEMENT I saw and evaluated the patient. I reviewed the resident's note and discussed the case with the resident. I agree with the resident's findings and plan as documented. SUBJECTIVE:continues to have pain but is much improved. denies CP, SOB, fever, chills, N/V/C/D OBJECTIVE: Last Vital Signs Temp Pulse Resp BP Pulse Ox 98.6 F 75 20 121/64 97 07/09/18 06:00 07/09/18 06:00 07/09/18 06:00 07/09/18 06:00 07/08/18 09:00 General NAD Lung CTA B/L no wheezing/rales/rhonchi ABdomen soft diffusely tender. bandages superior to umbilicus c/d/i. PARISH drain in LLQ drainage serosangenuous fluid iwth bandage c/d/i. + BS ASSESSMENT AND PLAN: 53yo F with no PMH presented with generalized abdominal pain and found to have acute appendicitis on imaging 1. Acute Appendicitis-s/p laprascopic appendectomy /. with perforated appendix. tolerating liquid diet. will advance. on zosyn day 3, can adjust based on sensitivities. PARISH drain management per surgery. does not tolerate percocet per patient (too nauseated) therefore will continue with morphine at this time. ID and surgery on board. encourage OOB to chair. can d/c IVF once tolerating diet 2. bandemia- due to inflammation as stated above.resolved 3. DVT ppx- hep sq
[2018-07-09] MEDS: ACETAMINOPHEN 325 MG TABLET (FP) PO SCH ×3 (11:02→22:01)
--- NOTE | 2018-07-09 12:04 | PN ---
Progress Note, Physician History of Present Illness: starting to feel better still with pain draining still bloody starting on oral liquids - Current Medication List Current Medications: Active Medications Acetaminophen (Tylenol -) 650 mg PO Q6H [facility] Last Admin: 07/09/18 11:02 Dose: Not Given Heparin Sodium (Porcine) (Heparin -) 5,000 unit SQ TID [facility] Last Admin: 07/09/18 06:44 Dose: 5,000 unit Piperacillin Sod/Tazobactam (Sod 3.375 gm/ Dextrose) 50 mls @ 100 mls/hr IVPB Q8H-IV CHANDU; Protocol Last Admin: 07/09/18 11:10 Dose: 100 mls/hr Ketorolac Tromethamine (Toradol Injection -) 30 mg IVPUSH Q8H-IV PRN PRN Reason: PAIN LEVEL 1-5 Stop: 07/14/18 09:59 Morphine Sulfate (Morphine Sulfate) 2 mg IVPUSH Q3H PRN PRN Reason: PAIN LEVEL 7 - 10 Last Admin: 07/09/18 02:38 Dose: 2 mg - Objective Vital Signs: Vital Signs Temperature 98.6 F 07/09/18 06:00 Pulse Rate 75 07/09/18 06:00 Respiratory Rate 20 07/09/18 06:00 Blood Pressure 121/64 07/09/18 06:00 O2 Sat by Pulse Oximetry (%) 97 07/08/18 09:00 Constitutional: Yes: No Distress, Calm Cardiovascular: Yes: Regular Rate and Rhythm Respiratory: Yes: Regular, CTA Bilaterally Gastrointestinal: Yes: Soft, Hypoactive Bowel Sounds, Other (drain in place bloody) Musculoskeletal: Yes: WNL Extremities: Yes: WNL Wound/Incision: Yes: Clean/Dry Neurological: Yes: Alert, Oriented Psychiatric: Yes: Alert, Oriented Labs: CBC, BMP 07/08/18 15:00 07/08/18 06:30 INR, PTT INR 1.28 (0.83-1.09) H 07/07/18 09:05 Assessment/Plan ac appendicitis peritonitis abd pain plan await for identification of the org continue abx rest as per the team and surgery once patient tolerates diet and we have identification of the organism will switch to oral
[2018-07-09] MEDS: ERTAPENEM SODIUM 1 GM in SODIUM CHLORIDE 50 ML IVPB SCH (15:51)
--- NOTE | 2018-07-09 16:26 | PATH ---
Surgical Pathology Report Patient Name: KAI LATHAM [facility]. Rec. #: [id number] /Age/Gender: 1965 (Age: 53) / F Account: [id number] Location: [facility] MED/SURG Taken: 07/07/2018 Received: 07/08/2018 Reported: 07/09/2018 Physicians: Nba Carey MD Specimen(s) Received APPENDIX Clinical History Acute appendicitis Final Diagnosis APPENDIX, LAPAROSCOPIC APPENDECTOMY: ACUTE APPENDICITIS AND PERIAPPENDICITIS. Electronically Signed Shanthi Cid M.D. Gross Description Received in formalin, labeled "appendix," is a 4.8 cm. in length vermiform appendix with a stapled margin of resection and moderate attached fat. The serosa is andrews-proctor with attached exudate. Sectioning reveals focal inflammation within the lumen. The wall of the appendix averages 0.1 cm. in thickness. [employer] Supervisor sections are submitted in one cassette. 07/08/201807/08/2018
[2018-07-10] MEDS: ACETAMINOPHEN 325 MG TABLET (FP) PO SCH ×2 (02:01→09:17)
[2018-07-10] MEDS: HEPARIN NA (PORCINE) 5,000 UNITS/ML 1ML VIAL SQ SCH ×3 (05:33→21:45)
--- NOTE | 2018-07-10 07:53 | PN ---
Progress Note (short form) - Note Progress Note: c/o that her abdomen feels slightly distended. also had 3 loose BM this AM. states overall pain has much improved. denies Cp, SOB< fever, chills, N/V/C Current Medications Generic Name Dose Route Start Last Admin Trade Name Freq PRN Reason Stop Dose Admin Acetaminophen 650 mg 07/09/18 08:15 07/10/18 02:01 Tylenol - PO 650 mg Q6H CHANDU Administration Heparin Sodium (Porcine) 5,000 unit 07/08/18 14:00 07/10/18 05:33 Heparin - SQ 5,000 unit TID CHANDU Administration Ertapenem 1 gm/ Sodium 50 mls @ 100 mls/hr 07/09/18 12:45 07/09/18 15:51 Chloride IVPB 100 mls/hr DAILY CHANDU Administration Ketorolac Tromethamine 30 mg 07/09/18 08:12 Toradol Injection - IVPUSH 07/14/18 09:59 Q8H-IV PRN PAIN LEVEL 1-5 Morphine Sulfate 2 mg 07/08/18 13:39 07/09/18 02:38 Morphine Sulfate IVPUSH 2 mg Q3H PRN Administration PAIN LEVEL 7 - 10 Last Vital Signs Temp Pulse Resp BP Pulse Ox 99 F 71 18 123/10 L 100 07/10/18 06:00 07/10/18 06:00 07/10/18 06:00 07/10/18 06:00 07/09/18 21:00 General NAD Lung CTA B/L no wheezing/rales/rhonchi ABdomen soft slightly distended. tender in LLQ. bandages c/d/i + BS ASSESSMENT AND PLAN: 53yo F with no PMH presented with generalized abdominal pain and found to have acute appendicitis on imaging 1. Acute Appendicitis-s/p laprascopic appendectomy 07/07. with perforated appendix. PARISH drain removed. tolerating diet. +ESBL in the peritoneal fluid. zosyn switched to Ertapenem day 4 of 7. insurance does not cover home infusions therefore will need to remain hospitalized to complete IV therapy due to senstivities. ID and surgery on board. encourage OOB to chair. can d/c IVF once tolerating diet 2. diarrhea- likely abx associated. low concern for cdiff as abdominal pain is improving and afebrile. will start bacid, loperamide prn 3. bandemia- due to inflammation as stated above.resolved 4. DVT ppx- hep sq Visit type - Emergency Visit Emergency Visit: Yes ED Registration Date: 07/07/18 Care time: The patient presented to the Emergency Department on the above date and was hospitalized for further evaluation of their emergent condition. - New Patient This patient is new to me today: No - Critical Care Critical Care patient: No - Discharge Referral Referred to [facility] Med P.C.: No
[2018-07-10] MEDS ORDERED: LOPERAMIDE HCL 2 MG CAPSULE PO PRN (09:25)
[2018-07-10] MEDS ORDERED: LOPERAMIDE HCL 2 MG CAPSULE PO ONE (09:25)
[2018-07-10] MEDS: LACTOBACILLUS ACIDOPHILUS 1 TABLET PO SCH (10:47)
[2018-07-10] MEDS: ERTAPENEM SODIUM 1 GM in SODIUM CHLORIDE 50 ML IVPB SCH (10:47)
--- NOTE | 2018-07-10 11:25 | PN ---
Progress Note (short form) - Note Progress Note: Attending Surgeon POD #3 Feeling better; tolerating regular diet VSS AF abdo-soft; less tender; port sites/drain site c/d/i; o/w negative WBC-nl IMP: doing well PLAN: Continue IVABS as per ID; OOB. Nba Carey MD FACS
--- NOTE | 2018-07-10 14:03 | PN ---
Progress Note, Physician History of Present Illness: patient stable feels nauseous otherwise ok - Current Medication List Current Medications: Active Medications Acetaminophen (Tylenol -) 650 mg PO Q6H PRN PRN Reason: fever or pain Heparin Sodium (Porcine) (Heparin -) 5,000 unit SQ TID [facility] Last Admin: 07/10/18 13:27 Dose: 5,000 unit Ertapenem 1 gm/ Sodium (Chloride) 50 mls @ 100 mls/hr IVPB DAILY [facility] Last Admin: 07/10/18 10:47 Dose: 100 mls/hr Ketorolac Tromethamine (Toradol Injection -) 30 mg IVPUSH Q8H-IV PRN PRN Reason: PAIN LEVEL 1-5 Stop: 07/14/18 09:59 Lactobacillus Acidophilus (Bacid -) 1 tab PO DAILY [facility] Last Admin: 07/10/18 10:47 Dose: 1 tab Loperamide HCl (Imodium -) 2 mg PO Q8H PRN PRN Reason: DIARRHEA Morphine Sulfate (Morphine Sulfate) 2 mg IVPUSH Q3H PRN PRN Reason: PAIN LEVEL 7 - 10 Last Admin: 07/09/18 02:38 Dose: 2 mg Ondansetron HCl (Zofran Odt -) 4 mg SL Q6H PRN PRN Reason: NAUSEA AND/OR VOMITING - Objective Vital Signs: Vital Signs Temperature 99 F 07/10/18 06:00 Pulse Rate 71 07/10/18 06:00 Respiratory Rate 18 07/10/18 06:00 Blood Pressure 123/10 L 07/10/18 06:00 O2 Sat by Pulse Oximetry (%) 100 07/09/18 21:00 Constitutional: Yes: No Distress, Calm Cardiovascular: Yes: Regular Rate and Rhythm Respiratory: Yes: Regular, CTA Bilaterally Gastrointestinal: Yes: Normal Bowel Sounds, Soft Musculoskeletal: Yes: WNL Extremities: Yes: WNL Neurological: Yes: Alert, Oriented Psychiatric: Yes: Alert, Oriented Labs: CBC, BMP 07/08/18 15:00 07/08/18 06:30 INR, PTT INR 1.28 (0.83-1.09) H 07/07/18 09:05 Assessment/Plan ac appendicitis peritonitis abd pain plan continue abx all cx noted final plan rest as per the team
[2018-07-10] MEDS: ACETAMINOPHEN 325 MG TABLET (FP) PO PRN (16:42)
[2018-07-10] MEDS: ONDANSETRON *ODT* 4 MG TABLET SL PRN (16:42)
[2018-07-11] MEDS: ONDANSETRON *ODT* 4 MG TABLET SL PRN ×3 (02:57→22:10)
[2018-07-11] MEDS: ACETAMINOPHEN 325 MG TABLET (FP) PO PRN ×2 (02:59→15:37)
[2018-07-11] MEDS: HEPARIN NA (PORCINE) 5,000 UNITS/ML 1ML VIAL SQ SCH ×3 (06:26→22:00)
[2018-07-11] MEDS: LACTOBACILLUS ACIDOPHILUS 1 TABLET PO SCH (10:09)
[2018-07-11] MEDS: ERTAPENEM SODIUM 1 GM in SODIUM CHLORIDE 50 ML IVPB SCH (10:09)
[2018-07-11] MEDS: KETOROLAC TROMETHAMINE 30 MG/1 ML VIAL IVPUSH PRN ×2 (10:10→22:10)
--- NOTE | 2018-07-11 11:29 | PN ---
Teaching Attending Note Name of Resident: Reed Pelaez ATTENDING PHYSICIAN STATEMENT I saw and evaluated the patient. I reviewed the resident's note and discussed the case with the resident. I agree with the resident's findings and plan as documented. SUBJECTIVE:overall improved. diarrhea resolved. denies CP, SOB, fever, chills, N /V OBJECTIVE: Last Vital Signs Temp Pulse Resp BP Pulse Ox 98.7 F 66 18 119/69 96 07/11/18 06:00 07/11/18 06:00 07/11/18 06:00 07/11/18 06:00 07/10/18 21:00 General NAD ASSESSMENT AND PLAN: 53yo F with no PMH presented with generalized abdominal pain and found to have acute appendicitis on imaging 1. Acute Appendicitis-s/p laprascopic appendectomy /. with perforated appendix. PARISH drain removed. tolerating diet. +ESBL in the peritoneal fluid. zosyn switched to Ertapenem day 5 of 7. insurance does not cover home infusions therefore will need to remain hospitalized to complete IV therapy due to senstivities. ID and surgery on board. encourage OOB to chair. 2. diarrhea- likely abx associated. now resolved. cont bacid. 3. bandemia- due to inflammation as stated above.resolved 4. DVT ppx- hep sq
--- NOTE | 2018-07-11 11:50 | PN ---
Progress Note, Physician History of Present Illness: continues to improve still with abd pain but improving - Current Medication List Current Medications: Active Medications Acetaminophen (Tylenol -) 650 mg PO Q6H PRN PRN Reason: fever or pain Last Admin: 07/11/18 02:59 Dose: 650 mg Heparin Sodium (Porcine) (Heparin -) 5,000 unit SQ TID [facility] Last Admin: 07/11/18 06:26 Dose: 5,000 unit Ertapenem 1 gm/ Sodium (Chloride) 50 mls @ 100 mls/hr IVPB DAILY [facility] Last Admin: 07/11/18 10:09 Dose: 100 mls/hr Ketorolac Tromethamine (Toradol Injection -) 30 mg IVPUSH Q8H-IV PRN PRN Reason: PAIN LEVEL 1-5 Stop: 07/14/18 09:59 Last Admin: 07/11/18 10:10 Dose: 30 mg Lactobacillus Acidophilus (Bacid -) 1 tab PO DAILY [facility] Last Admin: 07/11/18 10:09 Dose: 1 tab Loperamide HCl (Imodium -) 2 mg PO Q8H PRN PRN Reason: DIARRHEA Morphine Sulfate (Morphine Sulfate) 2 mg IVPUSH Q3H PRN PRN Reason: PAIN LEVEL 7 - 10 Last Admin: 07/09/18 02:38 Dose: 2 mg Ondansetron HCl (Zofran Odt -) 4 mg SL Q6H PRN PRN Reason: NAUSEA AND/OR VOMITING Last Admin: 07/11/18 10:20 Dose: 4 mg - Objective Vital Signs: Vital Signs Temperature 98.7 F 07/11/18 06:00 Pulse Rate 66 07/11/18 06:00 Respiratory Rate 18 07/11/18 06:00 Blood Pressure 119/69 07/11/18 06:00 O2 Sat by Pulse Oximetry (%) 96 07/10/18 21:00 Constitutional: Yes: No Distress, Calm Cardiovascular: Yes: Regular Rate and Rhythm Respiratory: Yes: Regular, CTA Bilaterally Gastrointestinal: Yes: Normal Bowel Sounds, Soft Musculoskeletal: Yes: WNL Extremities: Yes: WNL Neurological: Yes: Alert, Oriented Psychiatric: Yes: Alert, Oriented Labs: CBC, BMP 07/08/18 15:00 07/08/18 06:30 INR, PTT INR 1.28 (0.83-1.09) H 07/07/18 09:05 Assessment/Plan ac appendicitis peritonitis abd pain dirrhoea plan continue current abx tolerating diet rest as per the team
--- NOTE | 2018-07-11 12:01 | PN ---
Progress Note (short form) - Note Progress Note: Attending Surgeon POD#4 No c/o; tolerating diet VSS AF abdo-soft; port sites c/d/i IMP: doing well PLAN: As per ID. Nba Carey MD FACS
--- NOTE | 2018-07-11 12:51 | PN ---
Physical Exam: SUBJECTIVE: Patient seen and examined at bedside this morning. She is POD#4 s/p laparoscopic appendectomy. She endorses that her pain was well controlled overnight with Tylenol. Patient is tolerating regular diet without abdominal pain, nausea, or vomiting. She has not had any more diarrhea, or bowel movements since she received Immodium yesterday. She is passing flatus. Denies subjective fevers, chills. OBJECTIVE: Vital Signs Period Temp Pulse Resp BP Sys/Espinal Pulse Ox Last 24 Hr 98.3 F-99 F 66-74 18-18 119-135/64-75 96 GENERAL: The patient is awake, alert, and fully oriented, in no acute distress. HEAD: Normocephalic, atraumatic. EYES: PERRL, extraocular movements intact, sclera anicteric, conjunctiva clear. ENT: Oropharynx clear without exudates, moist mucous membranes. NECK: Supple without lymphadenopathy, or JVD LUNGS: Breath sounds equal, clear to auscultation bilaterally. No wheezes, no crackles. No accessory muscle use. HEART: Regular rate and rhythm, S1, S2 without murmur, rub or gallop. ABDOMEN: Soft, nondistended, diffusely tender to light palpation, worst at right and left lower quadrants. Hypoactive bowel sounds X4 quadrants. No hepatosplenomegaly. EXTREMITIES: 2+ radial and dorsalis pedis pulses bilaterally, warm, well- perfused. No lower extremity edema bilaterally. NEUROLOGICAL: Cranial nerves II through XII grossly intact. Normal speech. Strength 5/5 bilateral upper and lower extremities, limited only by postsurgical pain. PSYCH: Normal mood, normal affect upon my encounter. SKIN: Warm, dry. Surgical dressings clean, dry non-draining. Active Medications Generic Name Dose Route Start Last Admin Trade Name Freq PRN Reason Stop Dose Admin Acetaminophen 650 mg 07/10/18 09:13 07/11/18 02:59 Tylenol - PO 650 mg Q6H PRN Administration fever or pain Heparin Sodium (Porcine) 5,000 unit 07/08/18 14:00 07/11/18 06:26 Heparin - SQ 5,000 unit TID [facility] Administration Ertapenem 1 gm/ Sodium 50 mls @ 100 mls/hr 07/09/18 12:45 07/11/18 10:09 Chloride IVPB 100 mls/hr DAILY [facility] Administration Ketorolac Tromethamine 30 mg 07/09/18 08:12 07/11/18 10:10 Toradol Injection - IVPUSH 07/14/18 09:59 30 mg Q8H-IV PRN Administration PAIN LEVEL 1-5 Lactobacillus Acidophilus 1 tab 07/10/18 10:00 07/11/18 10:09 Bacid - PO 1 tab DAILY [facility] Administration Loperamide HCl 2 mg 07/10/18 09:25 Imodium - PO Q8H PRN DIARRHEA Morphine Sulfate 2 mg 07/08/18 13:39 07/09/18 02:38 Morphine Sulfate IVPUSH 2 mg Q3H PRN Administration PAIN LEVEL 7 - 10 Ondansetron HCl 4 mg 07/10/18 13:55 07/11/18 10:20 Zofran Odt - SL 4 mg Q6H PRN Administration NAUSEA AND/OR VOMITING ASSESSMENT/PLAN: Patient is a 53 year old female with no significant medical history admitted for acute appendicitis. Acute appendicitis with perforated appendix -Patient is POD#4 s/p laparoscopic appendectomy. -General surgery consult (Dr. Carey) appreciated -ID consult (Dr. Grover) appreciated -Peritoneal fluid cultures growing ESBL E. coli. -Ertapenem 1 gram IV daily (day #5/7 of antibiotics) -Tylenol 650mg PO Q6H PRN -Ketorolac 30mg IV Q8H PRN -Morphine 2mg IV Q3H PRN -Incentive spirometer Diarrhea -Resolved. Bacid 1 tablet PO daily FEN -No IV fluids indicated. Encourage judicious oral hydration. -Within normal limits, follow CMP -Regular diet Prophylaxis -Heparin 5000u subq TID Disposition -Continue care in medical surgical floor. Visit type - Emergency Visit Emergency Visit: Yes ED Registration Date: 07/07/18 Care time: The patient presented to the Emergency Department on the above date and was hospitalized for further evaluation of their emergent condition. - New Patient This patient is new to me today: No - Critical Care Critical Care patient: No - Discharge Referral Referred to [facility] Med P.C.: No
[2018-07-12] MEDS: HEPARIN NA (PORCINE) 5,000 UNITS/ML 1ML VIAL SQ SCH ×3 (06:45→21:22)
[2018-07-12] MEDS: ACETAMINOPHEN 325 MG TABLET (FP) PO PRN (06:46)
[2018-07-12] MEDS: ONDANSETRON *ODT* 4 MG TABLET SL PRN ×2 (06:48→21:20)
[2018-07-12 09:34] LABS: BASO % 0.4 % (0-2.0); HEMATOCRIT 33.6 % (32.4-45.2); HEMOGLOBIN 11.7 GM/dL (10.7-15.3); LYMPH % 15.4 % (8-40); MCH 31.4 pg (25.7-33.7); MCHC 34.8 g/dl (32.0-36.0); MEAN CELL VOLUME 90.1 fl (80-96); MEAN PLT VOLUME 6.8 fl (7.5-11.1); NEUT % 69.2 % (42.8-82.8); PLATELET COUNT 228 K/MM3 (134-434); RBC 3.74 M/mm3 (3.60-5.2); RDW 12.8 % (11.6-15.6); WHITE BLOOD COUNT 5.4 K/mm3 (4.0-10.0)
[2018-07-12] MEDS: ERTAPENEM SODIUM 1 GM in SODIUM CHLORIDE 50 ML IVPB SCH (11:24)
[2018-07-12] MEDS: LACTOBACILLUS ACIDOPHILUS 1 TABLET PO SCH (11:24)
--- NOTE | 2018-07-12 12:07 | PN ---
Progress Note, Physician History of Present Illness: patient stable no new issues still with some pain - Current Medication List Current Medications: Active Medications Acetaminophen (Tylenol -) 650 mg PO Q6H PRN PRN Reason: fever or pain Last Admin: 07/12/18 06:46 Dose: 650 mg Heparin Sodium (Porcine) (Heparin -) 5,000 unit SQ TID [facility] Last Admin: 07/12/18 06:45 Dose: 5,000 unit Ertapenem 1 gm/ Sodium (Chloride) 50 mls @ 100 mls/hr IVPB DAILY [facility] Last Admin: 07/12/18 11:24 Dose: 100 mls/hr Ketorolac Tromethamine (Toradol Injection -) 30 mg IVPUSH Q8H-IV PRN PRN Reason: PAIN LEVEL 1-5 Stop: 07/14/18 09:59 Last Admin: 07/11/18 22:10 Dose: 30 mg Lactobacillus Acidophilus (Bacid -) 1 tab PO DAILY [facility] Last Admin: 07/12/18 11:24 Dose: 1 tab Loperamide HCl (Imodium -) 2 mg PO Q8H PRN PRN Reason: DIARRHEA Ondansetron HCl (Zofran Odt -) 4 mg SL Q6H PRN PRN Reason: NAUSEA AND/OR VOMITING Last Admin: 07/12/18 06:48 Dose: 4 mg - Objective Vital Signs: Vital Signs Temperature 98.4 F 07/12/18 07:50 Pulse Rate 80 07/12/18 07:50 Respiratory Rate 20 07/12/18 07:50 Blood Pressure 137/79 07/12/18 07:50 O2 Sat by Pulse Oximetry (%) 96 07/11/18 21:00 Constitutional: Yes: No Distress, Calm Cardiovascular: Yes: Regular Rate and Rhythm Respiratory: Yes: Regular, CTA Bilaterally Gastrointestinal: Yes: Normal Bowel Sounds, Soft Musculoskeletal: Yes: WNL Extremities: Yes: WNL Neurological: Yes: Alert, Oriented Psychiatric: Yes: Alert, Oriented Labs: CBC, BMP 07/12/18 08:40 07/08/18 06:30 INR, PTT INR 1.28 (0.83-1.09) H 07/07/18 09:05 Assessment/Plan ac appendicitis peritonitis abd pain dirrhoea plan continue current abx tolerating diet rest as per the team tomorrow last day of abx then give oral doxy 100 mg bid for another 5 days
--- NOTE | 2018-07-12 14:01 | PN ---
Physical Exam: SUBJECTIVE: Patient seen and examined at bedside. States she is still in pain but endorses adequate medical control. Passing flatus, no BMs at this time. Using incentive spirometer. OBJECTIVE: Vital Signs Period Temp Pulse Resp BP Sys/Espinal Pulse Ox Last 24 Hr 98.4 F-99.5 F 67-80 20-20 122-137/72-84 96 GENERAL: A&Ox3, NAD HEENT: NC/AT, PERRLA, EOMI, MMM NECK: Trachea midline, full range of motion, supple, no LAD, no JVD LUNGS: CTA b/l HEART: RRR no m/r/g ABDOMEN: hypoactive BS, soft, ND, diffusely and severely tender most prominently at surgical sites; however Pt states this degree of tenderness is improved; surgical wounds healing well c/d/i EXTREMITIES: 2+ pulses, warm, well-perfused, no edema. NEUROLOGICAL: [place], motor, sensory systems w/o focal deficit PSYCH: Normal mood, normal affect. SKIN: Warm, dry, normal turgor Laboratory Results - last 24 hr 07/12/18 08:40 WBC 5.4 RBC 3.74 Hgb 11.7 Hct 33.6 MCV 90.1 MCH 31.4 MCHC 34.8 RDW 12.8 Plt Count 228 D MPV 6.8 L D Absolute Neuts (auto) 3.7 Neutrophils % 69.2 D Lymphocytes % 15.4 D Monocytes % 14.0 H D Eosinophils % 1.0 Basophils % 0.4 Nucleated RBC % 0 Active Medications Generic Name Dose Route Start Last Admin Trade Name Freq PRN Reason Stop Dose Admin Acetaminophen 650 mg 07/10/18 09:13 07/12/18 06:46 Tylenol - PO 650 mg Q6H PRN Administration fever or pain Heparin Sodium (Porcine) 5,000 unit 07/08/18 14:00 07/12/18 06:45 Heparin - SQ 5,000 unit TID [facility] Administration Ertapenem 1 gm/ Sodium 50 mls @ 100 mls/hr 07/09/18 12:45 07/12/18 11:24 Chloride IVPB 100 mls/hr DAILY [facility] Administration Ketorolac Tromethamine 30 mg 07/09/18 08:12 07/11/18 22:10 Toradol Injection - IVPUSH 07/14/18 09:59 30 mg Q8H-IV PRN Administration PAIN LEVEL 1-5 Lactobacillus Acidophilus 1 tab 07/10/18 10:00 07/12/18 11:24 Bacid - PO 1 tab DAILY [facility] Administration Loperamide HCl 2 mg 07/10/18 09:25 Imodium - PO Q8H PRN DIARRHEA Ondansetron HCl 4 mg 07/10/18 13:55 07/12/18 06:48 Zofran Odt - SL 4 mg Q6H PRN Administration NAUSEA AND/OR VOMITING ASSESSMENT/PLAN: 53 y/o F w/o sig PMHx admitted for acute appendicitis #Acute appendicitis c/b perforation -POD#5 s/p lap appy by Dr. Carey -ID consult (Dr. Grover) appreciated -Peritoneal fluid cultures growing ESBL E. coli. -cont Ertapenem 1 gram IV daily (day #6/7 of antibiotics) -Tylenol 650mg PO Q6H PRN -Ketorolac 30mg IV Q8H PRN -Morphine 2mg IV Q3H PRN -Incentive spirometer #Diarrhea -Resolved. Bacid 1 tablet PO daily #FEN -No IV fluids indicated. Encourage judicious oral hydration. -lab holiday -Regular diet #PPx -DVT: heparin subq -GI: not indicated #code -full #dispo -cont to follow on med/surg pending completion of ABx Visit type - Emergency Visit Emergency Visit: No - New Patient This patient is new to me today: Yes Date on this admission: 07/12/18 - Critical Care Critical Care patient: No
[2018-07-12] MEDS: KETOROLAC TROMETHAMINE 30 MG/1 ML VIAL IVPUSH PRN ×2 (14:37→21:21)
--- NOTE | 2018-07-12 14:56 | PN ---
Teaching Attending Note Name of Resident: Feliz Lopez ATTENDING PHYSICIAN STATEMENT I saw and evaluated the patient. I reviewed the resident's note and discussed the case with the resident. I agree with the resident's findings and plan as documented. SUBJECTIVE:asymptomatic. denies CP, SOB, fever, chills, N/V/C/D OBJECTIVE: Last Vital Signs Temp Pulse Resp BP Pulse Ox 98.4 F 80 20 137/79 96 07/12/18 07:50 07/12/18 07:50 07/12/18 07:50 07/12/18 07:50 07/11/18 21:00 General NAD ASSESSMENT AND PLAN: 53yo F with no PMH presented with generalized abdominal pain and found to have acute appendicitis on imaging 1. Acute Appendicitis-s/p laprascopic appendectomy /. with perforated appendix. PARISH drain removed. tolerating diet. +ESBL in the peritoneal fluid. zosyn switched to Ertapenem day 6 of 7. insurance does not cover home infusions therefore will need to remain hospitalized to complete IV therapy due to sensitivities. ID and surgery on board. encourage OOB to chair. 2. diarrhea- likely abx associated. now resolved. cont bacid. 3. bandemia- due to inflammation as stated above.resolved 4. DVT ppx- hep sq 5. d/c home tomorrow
[2018-07-12] MEDS ORDERED: SENNOSIDES/DOCUSATE COMBO (SENNA PLUS) TABLET (UD) PO SCH (22:00)
[2018-07-13] MEDS: HEPARIN NA (PORCINE) 5,000 UNITS/ML 1ML VIAL SQ SCH (06:12)
[2018-07-13] MEDS ORDERED: PT OWN MED DRAWER 7, Y5N ONE (08:44)
[2018-07-13] MEDS: LACTOBACILLUS ACIDOPHILUS 1 TABLET PO SCH (09:11)
[2018-07-13] MEDS: ERTAPENEM SODIUM 1 GM in SODIUM CHLORIDE 50 ML IVPB SCH (09:32)
[2018-07-13] MEDS: ONDANSETRON *ODT* 4 MG TABLET SL PRN (09:43)
--- NOTE | 2018-07-13 13:08 | DS ---
Physical Exam: SUBJECTIVE: Patient seen and examined at bedside. Endorses adequate pain control. Has resumed having bowel movements. Using incentive spirometer. OBJECTIVE: Vital Signs Period Temp Pulse Resp BP Sys/Espinal Pulse Ox Last 24 Hr 98.4 F-98.7 F 68-73 18-20 115-129/64-82 98-98 PHYSICAL EXAM GENERAL: A&Ox3, NAD HEENT: NC/AT, PERRLA, EOMI, MMM NECK: Trachea midline, full range of motion, supple, no LAD, no JVD LUNGS: CTA b/l HEART: RRR no m/r/g ABDOMEN: +bs more prominent vs yesterday, soft, ND, moderate diffuse tenderness improved vs yesterday; surgical wounds healing well c/d/i EXTREMITIES: 2+ pulses, warm, well-perfused, no edema. 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 SKIN: Warm, dry, normal turgor LABS HOSPITAL COURSE: Date of Admission:07/07/18 Patient is a 53 y/o F w/o significant PMHx who presented with acute appendicitis complicated by perforation. Peritoneal fluid cultures proved to be positive for ESBL E coli. Patient underwent laparoscopic appendectomy successfully and completed a 7 day course of IV ertapenem. She was discharged home with instructions for follow up with surgery and her PMD, and given prescriptions for pain and nausea control. Date of Discharge: 07/13/18 Minutes to complete discharge: 35 Discharge Summary Reason For Visit: ACUTE APPENDICITIS Condition: Improved - Instructions Diet, Activity, Other Instructions: You were hospitalized due to your appendicitis and were found to have some fluids that spilled into your abdomen. You had to stay for 7 day course of IV antibiotics (Ertapenem), but have completed treatment. Please follow-up with a surgeon in 7-[address] Carey. He had left instructions below to follow. Dr. Carey Discharge Instructions Post Operative Instructions Physical activity Resume your normal everyday activity as tolerated no heavy lifting or exercise until seen by your surgeon. You may walk unlimited amounts of and climb stairs. You may resume driving the car when you feel safe and comfortable behind the wheel and are no longer taking narcotic pain medications. Wound care If you have a bandage, leave it on, and keep dry for 48 hours. After that time discard the outer bandage. If there are tapes on the skin under the outer bandage, leave them in place. They will peel off in the next 7 to 10 days. Do Not peel them off. You also have a liquid glue beneath the steri-strips. It may begin to flake off over the next few days, do not peel it, it will come off on its own. You may shower 2 days after surgery, after removing the outer bandage. If there are tapes present on the skin, they can get wet. When showering, allow soap and water to run over the incision, do not scrub the incision. Pat dry well after showering. Diet There are no dietary restrictions. Eat healthy, high-fiber foods. Drink 6 to 8 glasses of liquid each day. This will assist in keeping your bowels are regular. Pain management You may take Tylenol (Acetaminophen) or Ibuprofen (for example, Motrin, Advil etc) for mild pain. Any pain prescription medication ordered should be taken as prescribed for moderate to severe pain. Please take as directed. If the prescribed dosage is not controlling your pain, please contact Dr Carey. Do not drive, drink alcohol or operate heavy machinery while taking narcotic pain medications. You may Acetaminophen and Ibuprofen alternating. For example, you can take Acetaminophen at 10AM followed by Ibuprofen at 1pm, and Acetaminophen at 4pm. Do not take additional Acetaminophen (Tylenol) if your narcotic pain medication contains Acetaminophen. Take Ibuprofen with food, Acetaminophen may be taken on an empty stomach. Do not exceed 3g (3000mg) of Acetaminophen in 24 hours. Do not exceed 2400mg Ibuprofen in [address] Carey for any of the following: Severe pain not relieved by medication Fever of 101 or higher Excessive bleeding or drainage on dressing Inability to urinate Call the office at [phone] for a post operative appointment in 7 - 10 days. Internal medicine instructions You were treated for acute appendicitis complicated by perforation and infection with drug-resistant bacteria. You underwent appendectomy and completed a course of IV antibiotics. Please follow Dr. Carye's instructions as per above and schedule follow up with him. Additionally, follow up with your primary medical doctor at your earliest opportunity. If you experience fever, chills, worsening abdominal pain, bleeding, chest pain, shortness of breath, or any other new or concerning symptoms, please return to the Emergency Department. Referrals: Nba Carey MD [Staff Physician] - 07/15/18 Disposition: HOME - Home Medications Comprehensive Discharge Medication List: Ambulatory Orders Naproxen Sodium [Aleve] 220 mg PO PRN PRN 07/07/18 Ondansetron HCl [Zofran] 4 mg PO Q6H PRN #16 tablet MDD 16 mg 07/13/18 Tramadol HCl 50 mg PO Q6H PRN #12 tablet MDD 4 tabs 07/13/18 This patient is new to me today: No Emergency Visit: No Critical Care patient: No - Discharge Referral Referred to [facility] Med P.C.: No
[2018-07-13 13:42] VITALS: BP 110/70; PULSE 76; TEMP 98
--- NOTE | 2018-07-13 18:24 | PN ---
Teaching Attending Note Name of Resident: Feliz Lopez ATTENDING PHYSICIAN STATEMENT I saw and evaluated the patient. I reviewed the resident's note and discussed the case with the resident. I agree with the resident's findings and plan as documented. SUBJECTIVE: Some mild abdominal discomfort, generalized. No nausea/vomiting. 1 episode of soft stool - no blood/mucus. No fever/chills. OBJECTIVE: Afebrile, Hemodynamically Stable. Last Vital Signs Temp Pulse Resp BP Pulse Ox 98.0 F 76 20 110/70 98 07/13/18 09:00 07/13/18 09:00 07/13/18 09:00 07/13/18 09:00 07/13/18 09:00 HEENT - Atraumatic, Hemodynamically Stable. Heart - S1, S2, RRR Lungs - clear to auscultation Abdomen - laparoscopy incision sites dressed and dry. Mild generalized tenderness - no guarding/rebound. Extremities - no edema. No calf tenderness Laboratory Tests 07/07/18 07/07/18 07/07/18 04:10 04:10 06:20 WBC 5.0 RBC 4.47 Hgb 14.8 Hct 40.2 MCV 90.0 MCH 33.2 MCHC 36.9 H RDW 12.8 Plt Count 208 MPV 7.2 L Absolute Neuts (auto) 4.4 Total Counted 100 Neutrophils % 87.6 H Neutrophils % (Manual) 78.0 Band Neutrophils % 8.0 Lymphocytes % 8.7 Lymphocytes % (Manual) 11.0 Monocytes % 3.4 L Monocytes % (Manual) 2 L Eosinophils % 0.1 Basophils % 0.2 Basophils % (Manual) 1.0 Nucleated RBC % 0 Platelet Estimate Adequate Platelet Comment No clotting detected PT with INR INR Sodium 138 Potassium 4.2 Chloride 104 Carbon Dioxide 27 Anion Gap 8 BUN 17 Creatinine 1.1 Creat Clearance w eGFR 52.16 Random Glucose 131 H Calcium 8.8 Phosphorus Magnesium Total Bilirubin 2.4 H AST 22 ALT 24 Alkaline Phosphatase 61 Total Protein 7.2 Albumin 4.0 Lipase 282 Urine Color Dkyellow Urine Appearance Slcloudy Urine pH 5.0 Ur Specific [place] 1.024 Urine Protein 1+ H Urine Glucose (UA) Negative Urine Ketones Negative Urine Blood Negative Urine Nitrite Negative Urine Bilirubin Negative Urine Urobilinogen Negative Ur Leukocyte Esterase Negative Urine WBC (Auto) 7 Urine RBC (Auto) <1 Ur Epithelial Cells Rare Urine Bacteria Rare Urine Mucus Many Urine HCG, Qual Blood Type Antibody Screen 07/07/18 07/07/18 07/07/18 06:20 09:05 09:05 WBC RBC Hgb Hct MCV MCH MCHC RDW Plt Count MPV Absolute Neuts (auto) Total Counted Neutrophils % Neutrophils % (Manual) Band Neutrophils % Lymphocytes % Lymphocytes % (Manual) Monocytes % Monocytes % (Manual) Eosinophils % Basophils % Basophils % (Manual) Nucleated RBC % Platelet Estimate Platelet Comment PT with INR 15.10 H INR 1.28 H Sodium Potassium Chloride Carbon Dioxide Anion Gap BUN Creatinine Creat Clearance w eGFR Random Glucose Calcium Phosphorus Magnesium Total Bilirubin AST ALT Alkaline Phosphatase Total Protein Albumin Lipase Urine Color Urine Appearance Urine pH Ur Specific [place] Urine Protein Urine Glucose (UA) Urine Ketones Urine Blood Urine Nitrite Urine Bilirubin Urine Urobilinogen Ur Leukocyte Esterase Urine WBC (Auto) Urine RBC (Auto) Ur Epithelial Cells Urine Bacteria Urine Mucus Urine HCG, Qual Negative Blood Type O POSITIVE Antibody Screen Negative 07/07/18 07/08/18 07/08/18 17:15 06:30 06:30 WBC 6.0 RBC 3.44 L Hgb 11.1 Hct 31.1 L D MCV 90.6 MCH 32.3 MCHC 35.6 RDW 12.9 Plt Count 142 D MPV 7.5 Absolute Neuts (auto) 5.3 Total Counted Neutrophils % 88.4 H Neutrophils % (Manual) Band Neutrophils % Lymphocytes % 7.2 L Lymphocytes % (Manual) Monocytes % 3.2 L Monocytes % (Manual) Eosinophils % 0.9 D Basophils % 0.3 Basophils % (Manual) Nucleated RBC % 0 Platelet Estimate Platelet Comment PT with INR INR Sodium 139 Potassium 3.6 Chloride 106 Carbon Dioxide 27 Anion Gap 7 L BUN 15 Creatinine 0.7 Creat Clearance w eGFR > 60 Random Glucose 80 Calcium 7.9 L Phosphorus 2.5 Magnesium 2.1 Total Bilirubin 1.5 H AST 10 L ALT 16 Alkaline Phosphatase 46 Total Protein 5.0 L Albumin 2.5 L Lipase Urine Color Urine Appearance Urine pH Ur Specific [place] Urine Protein Urine Glucose (UA) Urine Ketones Urine Blood Urine Nitrite Urine Bilirubin Urine Urobilinogen Ur Leukocyte Esterase Urine WBC (Auto) Urine RBC (Auto) Ur Epithelial Cells Urine Bacteria Urine Mucus Urine HCG, Qual Blood Type O POSITIVE Antibody Screen 07/08/18 07/12/18 15:00 08:40 WBC 6.5 5.4 RBC 3.62 3.74 Hgb 11.8 11.7 Hct 33.2 33.6 MCV 91.7 90.1 MCH 32.5 31.4 MCHC 35.5 34.8 RDW 12.6 12.8 Plt Count 150 228 D MPV 7.8 6.8 L D Absolute Neuts (auto) 3.7 Total Counted Neutrophils % 69.2 D Neutrophils % (Manual) Band Neutrophils % Lymphocytes % 15.4 D Lymphocytes % (Manual) Monocytes % 14.0 H D Monocytes % (Manual) Eosinophils % 1.0 Basophils % 0.4 Basophils % (Manual) Nucleated RBC % 0 Platelet Estimate Platelet Comment PT with INR INR Sodium Potassium Chloride Carbon Dioxide Anion Gap BUN Creatinine Creat Clearance w eGFR Random Glucose Calcium Phosphorus Magnesium Total Bilirubin AST ALT Alkaline Phosphatase Total Protein Albumin Lipase Urine Color Urine Appearance Urine pH Ur Specific [place] Urine Protein Urine Glucose (UA) Urine Ketones Urine Blood Urine Nitrite Urine Bilirubin Urine Urobilinogen Ur Leukocyte Esterase Urine WBC (Auto) Urine RBC (Auto) Ur Epithelial Cells Urine Bacteria Urine Mucus Urine HCG, Qual Blood Type Antibody Screen DISCHARGE Medications Medication Instructions Recorded Naproxen Sodium [Aleve] 220 mg PO PRN PRN 07/07/18 Ondansetron HCl [Zofran] 4 mg PO Q6H PRN #16 tablet MDD 16 07/13/18 mg Tramadol HCl 50 mg PO Q6H PRN #12 tablet MDD 4 07/13/18 tabs ASSESSMENT AND PLAN: 53 year old female with no significant PMH, presented with generalized abdominal pain and found to have acute appendicitis on imaging. 1. Acute Appendicitis - s/p lap appendectomy 07/07, with perforated appendix, peritoneal fluid positive for ESBL. Completed 7 days Ertapenem Currently afebrile, hemodynamically stable, tolerating oral intake, and medically optimized for discharge. Ultram for pain, anti-emetic. Cleared by surgery to travel home via airplane in 2-3 days. 2. Diarrhea - resolved. 1 small bowel movement yesterday - non-bloody.
--- NOTE | 2018-07-14 23:26 | OP ---
DATE OF OPERATION: 07/07/2018 PREOPERATIVE DIAGNOSIS: Acute appendicitis. POSTOPERATIVE DIAGNOSIS: Perforated appendicitis with localized peritonitis. PROCEDURE: Laparoscopic appendectomy. SURGEON: Nba Mendosa M.D. MANAGER OF HOSPITAL: Ryan Wang ANESTHESIA: General. OPERATIVE FINDINGS: There was a perforated appendicitis with marked right lower quadrant localized peritonitis. The rest of the findings are unremarkable. The patient was placed on the operating table in supine position, and after induction of general anesthesia, the patient's abdomen was prepped with ChloraPrep and draped in sterile fashion. A timeout was taken and pneumoperitoneum established above the umbilicus using a Veress needle to an intraabdominal pressure of 15 mmHg. Subsequently a 5-mm supraumbilical port was placed followed by a 12-mm suprapubic port and 5-mm left lower quadrant port. Laparoscopy was carried out, and the previously noted findings were observed. Using bone dissection, the ileum was bluntly mobilized off the cecum. Purulent drainage that was encountered in the abdomen was aspirated and sent for culture and sensitivity to the microbiology lab. Using blunt dissection, the appendix was identified, and the previously noted findings were observed. The base of the appendix was identified by the confluence of the 3 tinea on the cecum. The mesoappendix was serially divided using the LigaSure device. Once the base was clearly identified and the mesoappendix divided, a 45 -mm purple load Endo SUBHASH was fired across the base of the appendix. The appendix was placed in an EndoCatch and brought up to the suprapubic port but not removed. Hemostasis was checked for and noted to be good, and then copious irrigation was carried out with 3 L of normal saline until the return was clear. As much of the irrigant was removed as possible. Hemostasis was verified again, and then a 10- mm Librado-Ellis drain was placed in the right lower quadrant and brought out through the left lower quadrant 5-mm port site where it was secured to the skin with 2- 0 silk suture. Again, hemostasis was verified, and then all ports were removed under laparoscopic vision without evidence of bleeding from the port sites. The defect at the 12-mm port site was closed using a single 0 Vicryl [id number] suture. The skin incisions were closed in all cases with 4-0 Monocryl in a subcuticular fashion. Steri-Strips and Band-Aid dressings were placed around the drain site. A Biopatch was placed followed by dry sterile dressings. The drain was connected to bulb suction, and the patient aroused from general anesthesia and transferred to the post anesthesia care unit in stable condition condition, awake, and alert. Estimated blood loss 10 mL. Replacements crystalloid. Drains, one 10-mm Librado-Ellis in the right lower quadrant. Specimens, appendix and culture of peritoneal fluid. I, Nba Carey, was physically present in the operating room from the time the patient was placed on the operating room table until she was transferred to the postanesthesia care unit in my accompaniment. MD CHUY Guido/[id number] MTDD
== END 2018-07-13 12:56 | disposition home or self-care (01) | DRG 225 ==
LOC: JER 02:52 → JERBED 07:54 → J8W 09:44
PROVIDERS: ADMIT Internal Medicine
PROC: 0DTJ4ZZ Resection of Appendix, Percutaneous Endoscopic Approach (ICD-10-PCS; principal; 2018-07-07 15:00)
DX: K35.32 Acute appendicitis with perforation, localized peritonitis, and gangrene, without abscess (principal); K52.1 Toxic gastroenteritis and colitis; T36.95XA Adverse effect of unspecified systemic antibiotic, initial encounter; D72.825 Bandemia
CPT/HCPCS: 36415; 74177-TC; 80053; 81003; 81015; 83690; 83735; 84100; 84703; 85025; 85027; 85610; 86850; 86900; 86901; 87070; 87075; 87186; 87205; 88304-TC; 93005; 93010; 94010; 94760; 99283-25; J0131; J1644; J7030; Q0162